=== PATIENT | female | born 1935 | race Caucasian/White ===

== ENCOUNTER 2020-09-08 13:22 | Outpatient (CLI) | payer MEDICARE, SELFPAY ==
--- NOTE | ~2020-09-08 | XR_ITS ---
XR shoulder LT min 2V DATE: 09/08/2020 13:44 INDICATION: Left shoulder pain TECHNIQUE: 5 views COMPARISON: None FINDINGS: There is calcification of the rotator cuff consistent with calcific tendinitis. There is joint space narrowing at severe spurring at the left glenohumeral joint consistent with brigitte re osteoarthritis. Diffuse osteopenia. No fracture or dislocation, periosteal reaction or bone destruction of the left shoulder. 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
== END 2020-09-08 13:23 | disposition home or self-care (01) ==
PROVIDERS: PCP Family Medicine; Visit Provider Family Medicine
DX: M25.511 Pain in right shoulder (principal); M25.512 Pain in left shoulder; M19.012 Primary osteoarthritis, left shoulder
CPT/HCPCS: 73030

== ENCOUNTER 2020-11-19 12:04 | Outpatient (CLI) | payer MEDICARE, SELFPAY ==
--- NOTE | ~2020-11-19 | XR_ITS ---
XR tibia fibula RT 2V DATE: 11/19/2020 12:28 INDICATION: Patient fell 2 weeks ago. Distal lateral wound. TECHNIQUE: AP and lateral views COMPARISON: None FINDINGS: Diffuse osteopenia. Osteoarthritic changes noted at the knee joint. No fracture, dislocation, periosteal reaction or bone destruction is evident. Arterial calcifications are noted. IMPRESSION: Osteopenia Osteoarthritis at the knee joint Reviewed, dictated and finalized at location B. LAUNCH [employer] TECHNICIAN
--- NOTE | ~2020-11-19 | XR_ITS ---
XR ankle RT 2V DATE: 11/19/2020 12:28 INDICATION: Patient fell 2 weeks ago. Lateral distal wound TECHNIQUE: 2 views COMPARISON: None FINDINGS: There is soft tissue swelling, primarily laterally. No fracture or dislocation of the ankle or disruption of the ankle mortise. Plantar calcaneal enthesopathy, Minimal distal Achilles tendon calcification. Diffuse osteopenia. IMPRESSION: Lateral soft tissue swelling; no fracture or dislocation Reviewed, dictated and finalized at location B. ER COPPER
== END 2020-11-19 12:05 | disposition home or self-care (01) ==
PROVIDERS: PCP Family Medicine; Visit Provider Nurse Practitioner Family
DX: M79.89 Other specified soft tissue disorders (principal)
CPT/HCPCS: 73590; 73600

== ENCOUNTER 2021-01-21 14:36 | Outpatient (CLI) | payer MEDICARE, SELFPAY ==
--- NOTE | ~2021-01-21 | US_ITS ---
US arterial ankle brachial ind INDICATION: Cellulitis TECHNIQUE: Segmental pressures and plethysmographic and Doppler waveforms of the brachial and lower e xtremity arteries were obtained. COMPARISON: None. FINDINGS: Right and left brachial artery pressures of 150 mm Hg and 175 mm Hg, respectively, are concordant (no rmal difference <= 30 mmHg). The right ankle-brachial index (PUJA) is 0.95 (normal >= 0.9-1.0). The right great toe-brachial index (TBI) is greater than 1 (normal >= 0.60). The left PUJA is 0.93. The left TBI is greater than 1. IMPRESSION: 1. Normal ankle-brachial indices. Reviewed, dictated and finalized at location A. R FINISHER
== END 2021-01-21 14:37 | disposition home or self-care (01) ==
LOC: CHSIMG 14:38
PROVIDERS: PCP Family Medicine; Visit Provider Family Medicine
DX: L03.90 Cellulitis, unspecified (principal); M79.89 Other specified soft tissue disorders
CPT/HCPCS: 93922

== ENCOUNTER 2022-02-09 14:50 | Outpatient (RCR) | payer MEDICARE, SELFPAY ==
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
--- NOTE | 2022-03-04 15:01 | PTOPEVAL ---
Thank you for referring Carine Mcnally to [facility].? The patient is scheduled to be seen for therapy? ____x/week for ___ weeks. Please review, sign, date and return this plan of care GONZALEZ. I agree with and certify that the following plan of care is medically necessary. Referring Physician Date Admitting Provider: Attending Provider: Cleveland Alfonso DO Referring Provider: *PT Outpatient Evaluation Start: 02/09/22 15:05 Freq: Status: Active Protocol: Document 03/04/22 14:00 [facility] (Rec: 03/04/22 15:00 [facility] [id number]) Therapy Assessment Status Assessment Status Assessment Status Discharge Outpatient Past Medical History Gastrointestinal History Hx Appendectomy Yes Musculoskeletal History Hx Orthopedic Surgery Yes Evaluation Information Problem Diagnosis OA generalized, unsteady gait Subjective Information patient reports she feels Query Text:As Reported By Patient/ alright this date. she Family reports she does have pains in the knees and the shoulders, but reports she has pain every day. Pain Assessment Timing of Pain Assessment Timing of Pain Assessment Assessment Pain Scale Pain Scale Used Numeric (1 - 10) Self Report Pain Assessment Knee(s) Reported Pain Level 5 Shoulder(s) Reported Pain Level 7 Pain Score Pain Score 5,7: Self Report Interventions Used Interventions Used By Clinicians Activity or ADL's,Education, Heat,Ice,Medication Lower Extremity Muscle Strength Testing General Lower Extremity Strength Gross Lower Extremity Strength 4/5 R hip abd and flex in sitting 4/5 L hip flex and abd in sitting 5/5 bilateral knee ext 5/5 bilateral knee flex 5/5 bilateral ankle DF Upper Extremity Muscle Strength Testing General Upper Extremity Strength Gross Upper Extremity Strength Comments 4/5 bilateral shoulder flex and ER 4+/5 bilateral elbo strength Balance Assessment Tinetti Balance Assessment Sitting Balance Steady, safe Ability to Arise Able, uses arms to help Attempts to Arise Arises on 1st attempt Immediate Standing Balance Steady with support Standing Balance Steady, wide stance Nudged Response Staggers, catches self Standing with Eyes Closed Steady Step Pattern Turning 360 Degrees Discontinuous steps Stability Turning 360 Degrees Unsteady, grabs/staggers Sitting Down Uses arms or un
== END 2022-03-04 15:37 | disposition home or self-care (01) ==
LOC: CHSPT 14:50
PROVIDERS: PCP Family Medicine; Visit Provider Family Medicine
DX: M19.90 Unspecified osteoarthritis, unspecified site (principal)
CPT/HCPCS: 97110; 97112; 97161; 97530

== ENCOUNTER 2023-05-14 01:52 | Emergency (ER) | payer MEDICARE, SELFPAY ==
[2023-05-14] VITALS (24 sets, daily range): BP systolic 120–151; BP diastolic 78–101; PULSE 80–107; RESP 17–29; TEMP 36.6; O2SAT 86–100
--- NOTE | ~2023-05-14 | XR_ITS ---
EXAMINATION: XR chest 2V DATE: 05/14/2023 03:18 INDICATION: Shortness of breath TECHNIQUE: AP and lateral views of the chest are obtained. COMPARISON: 06/07/2019 FINDINGS: There are minimal airspace opacities of the lung bases. Small pleural effusions are present . There is no pneumothorax. The cardiomediastinal silhouette is normal. There is moderate thoracic sp ondylosis. There is advanced osteoarthritis of the glenohumeral joints. IMPRESSION: 1. Airspace opacities of the lung bases, consistent with atelectasis versus pneumonia versus pulmonar y edema. 2. Small pleural effusions. Reviewed, dictated and finalized at location A. IMPRESSION: 1. Airspace opacities of the lung bases, consistent with atelectasis versus pne umonia versus pulmonary edema. 2. Small pleural effusions.
--- NOTE | 2023-05-14 02:00 | ECG_ITS ---
Measurements Intervals [place] Rate: 101 P: TX: 0 QRS: -42 QRSD: 124 T: 123 QT: 360 QTc: 468 Interpretive Statements SINUS TACHYCARDIA ATRIAL PREMATURE COMPLEXES LEFT AXIS DEVIATION RIGHT BUNDLE BRANCH BLOCK LEFT VENTRICULAR HYPERTROPHY WITH ST-T CHANGE CANNOT RULE OUT SEPTAL INFARCT, AGE INDETERMINATE BASELINE ARTIFACT- I, II, AVR, AVL, V1-V2, V4-V6 ABNORMAL ECG NO PREVIOUS ECG AVAILABLE FOR COMPARISON Electronically Signed On 05-14-2023 7:34:34 CDT by Cleve Rosa D.O.
--- NOTE | 2023-05-14 02:06 | ED.SOB ---
HPI - SOB/Dyspnea General Chief Complaint: Shortness of Breath/Dyspnea Stated Complaint: SOB Time Seen by Provider: 05/14/23 02:01 Source: patient, EMS and RN notes reviewed Mode of arrival: EMS Limitations: no limitations History of Present Illness MD elicited complaint: shortness of breath Onset (ago): day(s) (2) Timing: constant Severity: moderate Exacerbating factors: lying flat Relieving factors: nothing Associated symptoms: chest pain Treatment prior to arrival: none Related Data Home oxygen amount: none Home Medications Medication Instructions Recorded Confirmed hydrocodone 5 mg-acetaminophen 325 1 tablet PO Q8H PRN Pain (Scale 05/14/23 05/14/23 mg tablet Score 4-6) Allergies Allergy/AdvReac Type Severity Reaction Status Date / Time No Known Allergies Allergy Verified 05/14/23 06:03 Review of Systems Review of Systems: All systems reviewed & are unremarkable except as noted in HPI and below PMFSH Past Medical History Medical History Osteoarthritis Surgical History Surgical History History of appendectomy Age 17 History of hysterectomy Age 43 History of right hip replacement 2019 Family History Family History Mother Family history of arthritis Father No problems noted. Social History Social History Social History: Patient lives with her Julio and has 2 sons. One son is a liability claims adjuster while the other is a retired heavy duty truck mechanic. Her was a roof bolting coal miner, and has some health issues. She currently wishes to be a full code, and her Julio is her surrogate decision maker if she is unable. Smoking status: Never smoker Alcohol intake: never Substance use: never Lack of Transportation: No Lack of Food: Never True Current Housing: I Have Housing Concerned About Future Housing: No Difficulty Paying Gas/Electric Bills: No Difficulty Paying for Meds: No Currently Unemployed: No Education: High School Diploma/GED Difficulty w/ Childcare or Family Care: No Living arrangements: with family Additional living arrangements comments: . Lives with . 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 Gender identity (if verbalized by the patient): Female Sexual Orientation (if Verbalized by the Patient): Straight or Heterosexual Spiritual care concerns: No Agree to blood products: Yes Exam Const: General: healthy appearing, no acute distress and alert Nutritional Appearance: well nourished Orientation/consciousness: patient oriented x3 Limitations: no limitations HENMT: Head: normal to inspection Ears: external ears normal Face/Nose/Sinus: Normal external nose present Face and sinus: normal facial exam Mouth: Yes moist mucous membranes Eyes: Conjunctivae: conjunctivae normal Pupils: Equal, round and reactive pupils present EOM: EOMs intact bilaterally Neck: Neck: normal visual inspection Resp: Effort & Inspection: normal respiratory effort Auscultation: clear to auscultation bilaterally Cardio: Rate: tachycardic Rhythm: abnormal rhythm irregularly irregular GI: GI Palp: Yes Soft to palpation and No Tenderness to palpation present (GI) Auscultation: normal bowel sounds Back/Spine/Pelvis: Cervical Spine: cervical ROM normal Thoracic/Lumbar Spine: thoraco-lumbar ROM normal Skin: General skin exam: normal color Rashes: no rashes Neuro: General: patient oriented x3, moves all extremities, no focal motor deficits and CN's II-XI intact bilaterally Speech: normal speech Extrem: General: normal to inspection and no clubbing, cyanosis or edema Psych: Mental Status: mental status grossly normal Affect: normal affect Attitude:
[2023-05-14 02:27] LABS: Basophils Absolute Auto 0.05 K/mm3 (0.00-0.10); Basophils Percent Auto 0.7 % (0.0-1.0); Eosinophils Percent Auto 1.3 % (1.0-6.0); Hematocrit 39.4 % (35.0-42.0); Hemoglobin 13.1 g/dL (11.7-13.8); Immature Granulocyte Absolute 0.04 K/mm3 (0.00-0.00); Immature Granulocyte Percent A 0.5 % (0.0-0.0); Lymphocytes Absolute Auto 1.18 K/mm3 (1.10-4.50); Lymphocytes Percent Auto 15.4 % (18.0-42.0); Mean Corpuscular HGB Conc 33.2 g/dL (32.0-36.0); Mean Corpuscular Volume 99.2 fL (78.0-102.0); Monocytes Absolute Auto 0.53 K/mm3 (0.10-0.90); Monocytes Percent Auto 6.9 % (2.0-11.0); Neutrophils Absolute Auto 5.8 K/mm3 (1.7-7.2); Neutrophils Percent Auto 75.2 % (50.0-70.0); Platelet Count Result 223 K/mm3 (150-420); Red Blood Count 3.97 M/mm3 (4.20-5.40); Red Cell Distribution Width 12.2 % (11.6-14.4); White Blood Count 7.7 K/mm3 (4.8-10.8)
[2023-05-14 02:41] LABS: Partial Thromboplastin Time 26.8 SEC (23.90-30.70); Prothrombin Time 11.1 Seconds (9.50-12.10)
[2023-05-14] MEDS: METOPROLOL SUCCINATE EXT REL 25 MG TABCR PO (02:41)
[2023-05-14 02:52] LABS: Alanine Aminotransferase 37 U/L (14-59); Albumin Level 3.3 g/dL (3.4-5.0); Alkaline Phosphatase 93 U/L (46-116); Anion Gap 9 mmol/L (8-16); Aspartate Amino Transferase 48 U/L (15-37); Bilirubin,Total 1.2 mg/dL (0.00-1.00); Blood Urea Nitrogen 28 mg/dL (7-18); Carbon Dioxide 28 mmol/L (21-32); Chloride 105 mmol/L (98-108); Estimated CRCL calculation 32 ml/min; Estimated Glomerular Filt Rate > 60; Glucose 155 mg/dL (70-99); Magnesium 1.8 mg/dL (1.8-2.4); NT Pro B Type Natriuretic Pept 7027 pg/mL (0-450); Osmolality Calculated 302 mOsm/kg (285-295); Potassium 3.7 mmol/L (3.5-5.1); Sodium 142 mmol/L (136-145); Thyroid Stimulating Hormone 1.44 uIU/mL (0.36-3.74); Total Protein 6.5 g/dL (6.4-8.2)
[2023-05-14 02:54] LABS: Troponin I 415.3 ng/L (0.00-60.4)
[2023-05-14] MEDS: ASPIRIN 81 MG CHEWABLE TABLET 324 MG PO (03:05)
--- NOTE | 2023-05-14 03:07 | PC.NURSE ---
Lab results reported and orders received, pt and family informed on POC. Orders received to transfer. Pt and family wish transfer to [facility].
--- NOTE | 2023-05-14 03:50 | PC.NURSE ---
Pt resting c family at bedside. VSS, monitor showing a-fib. Pt has Spo2 at 96% on 3L NC. Awaiting call back from Dr Hernández.
--- NOTE | 2023-05-14 04:45 | PC.NURSE ---
Called report to [facility] at [place]. Pt and family then requested transport per [facility] to [place] [place]. Call paged for [facility] for transfer.
--- NOTE | 2023-05-14 05:10 | PC.NURSE ---
Report to [facility], pt ambulated steadily to cot for transfer. VSS.
== END 2023-05-14 05:15 | disposition short-term general hospital (02) ==
PROVIDERS: Emergency Provider Emergency Medicine; PCP Family Medicine
DX: I21.4 Non-ST elevation (NSTEMI) myocardial infarction (principal); I48.20 Chronic atrial fibrillation, unspecified; I11.0 Hypertensive heart disease with heart failure; I50.9 Heart failure, unspecified; Z79.891 Long term (current) use of opiate analgesic
CPT/HCPCS: 36415; 71046; 80053; 83735; 83880; 84443; 84484; 85025; 85610; 85730; 93005; 99291; A9270

== ENCOUNTER 2023-05-14 05:47 | Inpatient (IN) | payer MEDICARE, SELFPAY ==
[2023-05-14] VITALS (19 sets, daily range): BP systolic 89–176; BP diastolic 55–112; PULSE 57–87; RESP 12–20; TEMP 36.1–37.4; O2SAT 92–100; BMI 25.5
--- NOTE | 2023-05-14 | ECHO_ITS ---
Patient Info Name: Carine Mcnally Age: 88 years : 1935 Gender: Female Ht: 61 in Wt: 136 lbs BSA: 1.64 m2 HR: 84 bpm Technical Quality: Fair Exam Date: 05/14/2023 9:48 AM Exam Location: [facility] Pulmonary Exam Room: [facility] Patient Status: Inpatient Admit Date: 05/14/2023 Staff Ordering Physician: Vera Hernández MD Heating Element Repairer: Ingrid Queen RDCS Attending Provider: Vera Hernández MD Referring Physician: Edgar PEÑA; Exam Type: CA echo doppler color flow Study Info Indications - chf sob dyspnea Complete two-dimensional, color flow and Doppler transthoracic echocardiogram is performed. Summary 1. Complete two-dimensional, color flow and Doppler transthoracic echocardiogram is performed. 2. Left ventricular chamber dimension is mildly enlarged. 3. Left ventricular systolic function is segmentally moderately reduced, estimated at 35-40%. 4. Basal to apical inferior and lateral couch are hypokinetic. Mid to apical anteroseptal and septal and apical couch are hypokinetic. 5. There is mild concentric increased left ventricular wall thickness. 6. The left ventricular diastolic function is grade I diastolic dysfunction. 7. E/e' 16 is elevated. 8. Global longitudinal strain is abnormal at -8.9%. 9. Left atrial chamber dimension is moderately enlarged. 10. There is moderate aortic valve sclerosis. 11. There is mild aortic valve stenosis with a peak velocity of 216 cm/s, mean gradient of 11 mmHg, and aortic valve area of 1.6 cm2. 12. There is trace aortic valve regurgitation. 13. The mitral valve has mildly thickened leaflets and mildly calcified annulus. 14. There is moderate mitral valve regurgitation. 15. There is mild to moderate tricuspid valve regurgitation. 16. Mild pulmonary hypertension, estimated pulmonary arterial systolic pressure is 42 mmHg. 17. There is mild pulmonic regurgitation. Left Ventricle E/e' 16 is elevated. Global longitudinal strain is abnormal at -8.9%. Left ventricular systolic function is segmentally moderately reduced, estimated at 35-40%. Basal to apical inferior and lateral couch are hypokinetic. Mid to apical anteroseptal and septal and apical couch are hypokinetic. Left ventricular chamber dimension is mildly enlarged. There is mild concentric increased left ventricular wall thickness. The left ventricular diastolic function is grade I diastolic dysfunction. Right Ventricle Right ventricular systolic function is normal and with normal TAPSE 3.0 cm. Right ventricular chamber dimension is normal. Left Atria Left atrial chamber dimension is moderately enlarged. Right Atria Right atrial chamber dimension is normal. Aortic Valve The aortic valve is trileaflet. There is moderate aortic valve sclerosis. There is mild aortic valve stenosis with a peak velocity of 216 cm/s, mean gradient of 11 mmHg, and aortic valve area of 1.6 cm2. There is trace aortic valve regurgitation. Pulmonic Valve There is mild pulmonic regurgitation. Mitral Valve The mitral valve has mildly thickened leaflets and mildly calcified annulus. There is no mitral valve stenosis. There is moderate mitral valve regurgitation. Tricuspid Valve There is mild to moderate tricuspid valve regurgitation. Mild pulmonary hypertension, estimated pulmonary arterial systolic pressure is 42 mmHg. Pericardium/Pleural There is no pericardial effusion. Inferior Vena Cava Normal inferior vena cava with >50% collapse upon inspiration consistent with normal right atrial pressure, 5 mmHg. Aorta The aortic root size at the sinus of Valsalva is normal. Left
--- NOTE | ~2023-05-14 | CT_ITS ---
EXAMINATION: CT brain wo con DATE: 05/14/2023 16:40 INDICATION: Loss of consciousness TECHNIQUE: Computed tomography (CT) of the head was performed without intravenous contrast. Sagittal and coronal reconstructions were performed. The mA was adjusted according to patient size. Iterative reconstruction technique was employed. The dose-length product was 529.67 mGy-cm. COMPARISON: head CT dated 09/24/19 FINDINGS: No acute intracranial hemorrhage, acute infarction or abnormal extra axial fluid collection. There is mild to moderate scattered white matter hypoattenuation consistent with chronic small vessel ischemi c disease. Symmetric prominence of the sulci consistent with mild age-appropriate diffuse cerebral vo lume loss. Ventricles are normal and symmetric. No mass/mass effect. Changes of bilateral intraocular lens replacement. The orbits, paranasal sinuses and mastoid air cells are normal. Intracranial calci fied cerebral atherosclerosis is noted. IMPRESSION: 1. No acute intracranial process. 2. No significant change in age-related changes including mild diffuse volume loss and mild moderate scattered white matter hypoattenuation consistent with chronic small vessel ischemic disease. Reviewed, dictated and finalized at location A. IMPRESSION: 1. No acute intracranial process. 2. No significant change in age-related changes including mild diffuse volume l oss and mild moderate scattered white matter hypoattenuation consistent with ch ronic small vessel ischemic disease.
--- NOTE | 2023-05-14 06:58 | PC.NURSE ---
This patient, Carine Mcnally, was admitted to IMU Room 206-02. Patient/family oriented to hospital policies and general routines including ID bracelet, bed and alarms, visiting hours, pain management, procedures, bathroom and other care routines, personal items, smoking policy, room service/diet, and visiting hours. Information on how to activate the Rapid Response Team has been discussed. Patient/Family are encouraged to report perceived risks to care and to ask questions if they do not understand what they are told or what they should do.
[2023-05-14 07:10] LABS: Basophils Absolute Auto 0.1 K/mm3 (0.0-0.1); Basophils Percent Auto 0.7 % (0.2-1.2); Eosinophils Percent Auto 0.5 % (0-4.4); Hemoglobin 13.2 g/dL (12.0-15.0); Immature Granulocyte Absolute 0.02 K/mm3 (0.00-0.031); Immature Granulocyte Percent A 0.3 % (0-0.5); Lymphocytes Absolute Auto 1.16 K/mm3 (0.9-3.2); Lymphocytes Percent Auto 15.5 % (18.3-44.2); Mean Corpuscular Hemoglobin 32.5 pg (26-34); Mean Corpuscular Volume 98.5 fl (80-100); Monocytes Absolute Auto 0.7 K/mm3 (0.1-0.6); Monocytes Percent Auto 8.8 % (2.6-8.5); Neutrophils Absolute Auto 5.5 K/mm3 (1.3-6.7); Neutrophils Percent Auto 74.2 % (45.5-73.1); Platelet Count Result 226 k/mm3 (150-375); Red Blood Count 4.06 M/mm3 (4.2-5.4); Red Cell Distribution Width 12.6 % (11.5-14.5); White Blood Count 7.5 K/mm3 (4.5-10.0)
--- NOTE | 2023-05-14 07:14 | PM.IMHP ---
H&P: HPI History of Present Illness Date/Time: 05/14/23 07:00 Chief Complaint: Shortness of breath Narrative: Carine Mcnally is an 88 year old female with no significant past medical history who presented to [place] ED with complaints of Shortness of breath. Patient is sort of a bad historian. After she went and stated that she had been going to the doctor about her knee due to pain. Patient stated that her knees were so bad that she was not even able to walk which was about 2 weeks ago. Then she went on to say that she was eating breakfast about 2 days ago and she felt something was wrong in her stomach. She took some [place] did calm down however did go way. Then she stated it got real bad this morning and she was just very short of breath. Patient stated that she was in bed for 2 hours lower than normal and when she did get out of bed she noted that it was very hard. She went to the bathroom and when she got to the bathroom she noticed that she was having labored breathing and was unable to really breathe. She stated that she went to the kitchen where she noted that the shortness of breath was even worse. She then alerted her and told him that she was going to as she could not breathe. She stated that her breathing was so bad that she was hyperventilating. Her advised her to lay down when she did lay down she stated that she felt her heart beating in her chest really quickly and that she was lying on her side and she felt the palpitations through her left arm. She also stated that she was having some lightheadedness and dizziness. The shortness of breath was still present. She did call an ambulance and they brought her to the ED. Patient stated that she has been unable to lay flat as she becomes very short of breath. She denies any current chest pain, nausea, vomiting, diarrhea, constipation, urinary dysfunction including frequency, urgency, pain or burning. She also denies any abdominal pain. She also stated that her appetite is lacking could be better however she denies any current weight loss or missing any meals. EKG did show Sinus tachycardia with PACs with a rate of 101 at [place]. Troponin was also elevated at 415.3, BNP 7027. Patient was given metoprolol, and aspirin in the ED. Cardiology has been consulted. HR is better in the 80s. She is requiring oxygen, and does appear to be short of breath. She does have a hard time completing sentences and gets winded at rest. She is being admitted to the hospitalist service as an inpatient and will require greater than 2 midnights for evaluation, workup, and recovery Review of Systems Review of Systems: 12 systems reviewed and are negative unless otherwise stated in the HPI All systems reviewed & are unremarkable except as noted in HPI and below PMFSH Past Medical History Medical History Osteoarthritis Surgical History Surgical History History of appendectomy Age 17 History of hysterectomy Age 43 History of right hip replacement 2019 Family History Family History Mother Family history of arthritis Father No problems noted. Social History Social History Social History: Patient lives with her Julio and has 2 sons. One son is a manager behavior while the other is a retired truck driver supervisor. Her was a clothing examiner, and has some health issues. She currently wishes to be a full code, and her Julio is her surrogate decision maker if she is unable. Smoking status: Never smoker Alcohol intake: never Substance use: never Lack of Transportation: No Lack of Food: Never True Current Housing: I Have Housing Concerned About Future Housing: No Difficulty Paying Gas/Electric B
[2023-05-14 07:22] LABS: Cholesterol 185 mg/dL (0-200); HDL Direct 47 mg/dL; Triglycerides 105 mg/dL (<150)
[2023-05-14 07:24] LABS: Prothrombin Time 13.7 Seconds (11.1-14.7)
[2023-05-14 07:25] LABS: Partial Thromboplastin Time 28.2 SECONDS (22.3-36.8)
[2023-05-14 07:32] LABS: LDL Cholesterol Direct 107 mg/dL
[2023-05-14] MEDS: HEPARIN SODIUM 5,000 UNITS/ML VIAL 5000 UNITS IV PUSH (07:46)
[2023-05-14] MEDS: HEPARIN SOD/D5W 100 UNITS/ML 25,000 UNITS/250 ML BAG 10 UNITS IV CONT (07:46)
[2023-05-14 07:52] LABS: Hemoglobin A1C 6.2 % (<5.7)
[2023-05-14 07:53] LABS: Alanine Aminotransferase 37 U/L (6-35); Albumin Level 3.7 g/dL (3.5-5.1); Alkaline Phosphatase 88 U/L (38-126); Anion Gap 6 mmol/L (8-16); Aspartate Amino Transferase 62 U/L (14-36); Bilirubin,Total 1.5 mg/dL (0.2-1.3); Blood Urea Nitrogen 27 mg/dL (7-17); Calcium 8.9 mg/dL (8.4-10.2); Carbon Dioxide 30 mmol/L (22-30); Chloride 103 mmol/L (98-107); Estimated CRCL calculation 37 ml/min; Estimated Glomerular Filt Rate > 60; Glucose 110 mg/dL (65-110); Potassium 4.2 mmol/L (3.4-5.0); Sodium 139 mmol/L (137-145)
--- NOTE | 2023-05-14 08:08 | PM.CNCAR ---
Assessment and Plan Assessment and plan (1) Elevated troponin: Code(s): R77.8 - Other specified abnormalities of plasma proteins Status: Acute Assessment and Plan: Significantly elevated at 3.19. Probably NSTEMI. Trend troponin to peak. Start aspirin 81 mg daily and heparin drip, Atorvastatin 80 mg daily, Metoprolol Tartate 25 mg BID. Obtain echo. Anticipate [facility] on Tuesday unless hemodynamically or clinically unstable. (2) Non-ST elevation TX (NSTEMI): Code(s): I21.4 - Non-ST elevation (NSTEMI) myocardial infarction Status: Acute (3) Congestive heart failure: Qualifiers: Heart failure chronicity: acute Heart failure type: unspecified Qualified Code(s): I50.9 - Heart failure, unspecified Code(s): I50.9 - Heart failure, unspecified Status: Acute Assessment and Plan: Check CXR. On Lasix 40 mg IV BID. History of Present Illness History of Present Illness Consult date/time: 05/14/23 08:08 Reason For Visit: CHF, A fib, elevated troponin Narrative: 88 yr old woman presents to [place] ER with sob and transferred to [facility]. She has no cardiac history. Reports early this morning as she gets up early she felt sob and her heart was racing. She feels better now no longer sob. Normally she can walk 1 block and limited more by knee pain. Denies chest pain, orthopnea, PND, edema, dizziness. Review of Systems Review of Systems: All systems reviewed & are unremarkable except as noted in HPI and below Cardiovascular: Cardiovascular: Reports as per HPI, Denies chest pain, Denies irregular heart rhythm, Denies leg edema and Denies lightheadedness Respiratory: Respiratory: Reports as per HPI and Reports dyspnea Gastrointestinal: Gastrointestinal: Reports as per HPI and Denies abdominal pain Genitourinary: Genitourinary: Reports as per HPI and Denies dysuria Musculoskeletal: Musculoskeletal: Reports as per HPI and Reports arthralgias Neurologic: Reports as per HPI, Denies dizziness and Denies syncope [facility] Past Medical History Medical History Osteoarthritis Surgical History Surgical History History of appendectomy Age 17 History of hysterectomy Age 43 History of right hip replacement 2018 Family History Family History Mother Family history of arthritis Father No problems noted. Social History Social History Social History: Patient lives with her Julio and has 2 sons. One son is a welcome center attendant while the other is a retired concrete truck driver. Her was a forms examiner, and has some health issues. She currently wishes to be a full code, and her Julio is her surrogate decision maker if she is unable. Smoking status: Never smoker Alcohol intake: never Substance use: never Lack of Transportation: No Lack of Food: Never True Current Housing: I Have Housing Concerned About Future Housing: No Difficulty Paying Gas/Electric Bills: No Difficulty Paying for Meds: No Currently Unemployed: No Education: High School Diploma/GED Difficulty w/ Childcare or Family Care: No Living arrangements: with family Additional living arrangements comments: . Lives with . 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
[2023-05-14] MEDS: lisinopriL 2.5 MG TABLET PO (10:00)
[2023-05-14] MEDS: ATORVASTATIN 40 MG TABLET 80 MG PO (10:01)
[2023-05-14] MEDS: FUROSEMIDE INJ 40 MG/4 ML VIAL IV PUSH (10:02)
[2023-05-14] MEDS: METOPROLOL TARTRATE 25 MG TABLET PO ×2 (10:02→20:59)
[2023-05-14] MEDS: ASPIRIN 81 MG ENTERIC TABLET PO (10:04)
[2023-05-14 12:12] LABS: Glucose Point of Care 155 mg/dl (65-105)
[2023-05-14 16:15] LABS: Partial Thromboplastin Time 60.4 SECONDS (22.3-36.8)
[2023-05-14 16:37] LABS: Alveolar/Arterial O2 Gradient 94.1 mmHg; Base Excess ABG 1.9 mEq/l (+/-2.0); Fractional Inspired Oxygen 28 %; HCO3 ABG 23.8 mEq/l (22.0-26.0); Oxygen Content ABG 19.4 %vol (16.0-22.0); Oxygen Saturation ABG 95.8 % (95.0-100.0); Oxyhemoglobin 93.9 % THb (90.0-100.0); PO2 ABG 70.1 mmHg (80.0-100.0); Total Hemoglobin 14.7 g/dL (12.0-18.0)
[2023-05-14 16:40] LABS: Device NASAL CANNULA; Modified Allen's Test Pass; Site Drawn RIGHT RADIAL; pH ABG 7.518 (7.350-7.450)
--- NOTE | 2023-05-14 16:40 | PM.EVENT ---
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 patient was not responding. family notified nursing staff. pateint was put to bed and started to become responsive. patient bp 90 systolic at that time. she is more responsive and back to her usual self. vitals with bp still lowish, heart rate normal. she reports no chest pain or shortness of breath. patient moving all her extremities. likely the event relative to hypotension. shaking episode likely due to hypotension and cerebral hypoperfusion not seizures. will get ct head to rule out any intracranial pathology. ng 500 cc bolus. she receieved metoprolol, iv lasix and lisinopril earlier today. will hold on further diuresis. telemetry with afib rate controlled, no other significant arrhythmia noted during the event. check ekg and abg. recheck labs. discussed with the family.
--- NOTE | 2023-05-14 16:45 | ECG_ITS ---
Measurements Intervals [place] Rate: 77 P: 82 MA: 189 QRS: -37 QRSD: 114 T: 133 QT: 436 QTc: 494 Interpretive Statements SINUS RHYTHM ATRIAL PREMATURE COMPLEX LEFT AXIS DEVIATION LEFT VENTRICULAR HYPERTROPHY AND ST-T CHANGE MINIMAL Q WAVES- HIGH LATERAL LEADS ST-T WAVE ABNORMALITY IN ANTEROLATERAL LEADS- CONSIDER ISCHEMIA BASELINE WANDER- V6 ABNORMAL ECG COMPARED TO ECG 05/14/2023 02:03:27 SINUS RHYTHM NOW PRESENT ST-T WAVE ABNORMALITY NOW PRESENT Electronically Signed On 05-15-2023 21:22:34 CDT by Cleve Rosa D.O.
[2023-05-14 17:05] LABS: Glucose Point of Care 159 mg/dl (65-105)
--- NOTE | 2023-05-14 17:21 | PC.NURSE ---
Pt found unresponsive in chair around 1608. Rapid Response called. pt moved to bed. Primary RN, laborer shaft sinking and RT at bedside during this time.
[2023-05-14] MEDS: SODIUM CHLORIDE 0.9% IV 500 ML IV CONT (17:32)
[2023-05-14] MEDS: HEPARIN SODIUM 5,000 UNITS/ML VIAL 2000 UNITS IV PUSH (18:36)
[2023-05-14 20:39] LABS: Glucose Point of Care 138 mg/dl (65-105)
[2023-05-15] VITALS (19 sets, daily range): BP systolic 110–138; BP diastolic 60–74; PULSE 58–80; RESP 16–20; TEMP 35.7–36.6; O2SAT 95–99
[2023-05-15 02:20] LABS: Partial Thromboplastin Time 84.1 SECONDS (22.3-36.8)
[2023-05-15 07:33] LABS: Basophils Percent Auto 0.8 % (0.2-1.2); Eosinophils Absolute Auto 0.1 K/mm3 (0-0.3); Eosinophils Percent Auto 2.1 % (0-4.4); Hematocrit 37.8 % (37.0-47.0); Hemoglobin 12.5 g/dL (12.0-15.0); Immature Granulocyte Absolute 0.02 K/mm3 (0.00-0.031); Immature Granulocyte Percent A 0.4 % (0-0.5); Lymphocytes Absolute Auto 1.28 K/mm3 (0.9-3.2); Mean Corpuscular HGB Conc 33.1 g/dl (32-36); Mean Corpuscular Hemoglobin 32.6 pg (26-34); Mean Corpuscular Volume 98.4 fl (80-100); Mean Platelet Volume 10.2 fl (7.4-10.4); Monocytes Absolute Auto 0.5 K/mm3 (0.1-0.6); Monocytes Percent Auto 9.9 % (2.6-8.5); Neutrophils Absolute Auto 3.2 K/mm3 (1.3-6.7); Neutrophils Percent Auto 61.8 % (45.5-73.1); Platelet Count Result 198 k/mm3 (150-375); Red Blood Count 3.84 M/mm3 (4.2-5.4); Red Cell Distribution Width 12.8 % (11.5-14.5); White Blood Count 5.1 K/mm3 (4.5-10.0)
[2023-05-15 07:44] LABS: Anion Gap 3 mmol/L (8-16); Blood Urea Nitrogen 32 mg/dL (7-17); Calcium 8.5 mg/dL (8.4-10.2); Carbon Dioxide 32 mmol/L (22-30); Chloride 102 mmol/L (98-107); Estimated CRCL calculation 37 ml/min; Estimated Glomerular Filt Rate > 60; Glucose 107 mg/dL (65-110); Potassium 3.7 mmol/L (3.4-5.0); Sodium 137 mmol/L (137-145)
[2023-05-15 07:48] LABS: Partial Thromboplastin Time 89.4 SECONDS (22.3-36.8)
[2023-05-15 08:00] LABS: Glucose Point of Care 116 mg/dl (65-105)
--- NOTE | 2023-05-15 08:18 | ECG_ITS ---
Measurements Intervals [place] Rate: 59 P: 30 CO: 183 QRS: -38 QRSD: 123 T: 136 QT: 488 QTc: 487 Interpretive Statements SINUS BRADYCARDIA LEFT AXIS DEVIATION POSSIBLE LEFT ATRIAL ENLARGEMENT LEFT VENTRICULAR HYPERTROPHY AND ST-T CHANGE BORDERLINE ST-T WAVE ABNORMALITY- ANTEROLATERAL LEADS BORDERLINE ECG COMPARED TO ECG 05/14/2023 02:03:27 SINUS BRADYCARDIA NOW PRESENT Electronically Signed On 05-15-2023 13:17:07 CDT by Cleve Rosa D.O.
--- NOTE | 2023-05-15 08:28 | PM.PNCARD ---
Progress Note: A&P Assessment and Plan (1) Elevated troponin: Code(s): R77.8 - Other specified abnormalities of plasma proteins Status: Acute Assessment and Plan: Significantly elevated peaked at 8.3. Probably NSTEMI. (2) Non-ST elevation [place] (NSTEMI): Code(s): I21.4 - Non-ST elevation (NSTEMI) myocardial infarction Status: Inactive Assessment and Plan: 05/14/23 Echo: EF 35-40%, mild LVE, mild LVH, basal to apical inferior and lateral couch are hypokinetic, mid to apical anteroseptal and septal and apex are hypokinetic, grade I diastolic dysfunction (E/e' 16), mod LAE, mild (HERIBERTO 1.6 cm2), trace AI, mod MR, mild-mod TR, mild PI, RVSP 42 mmHg. On aspirin 81 mg daily and heparin drip, Atorvastatin 80 mg daily, Metoprolol Tartate 25 mg BID, Lisinopril 2.5 mg daily. Anticipate [facility] on Tuesday unless hemodynamically or clinically unstable. (3) Congestive heart failure: Qualifiers: Heart failure chronicity: acute Heart failure type: unspecified Qualified Code(s): I50.9 - Heart failure, unspecified Code(s): I50.9 - Heart failure, unspecified Status: Inactive Assessment and Plan: Euvolemic now. Acute systolic and diastolic heart failure. Had LOC yesterday due to hypotension probably from volume depletion. Stopped Lasix IV and given some IVF. Start Jardiance 10 mg daily. Subjective Date/time seen: 05/15/23 08:28 Interval history: Denies chest pain or sob. Exam Const: General: cooperative, healthy appearing and comfortable Orientation/consciousness: oriented to person, oriented to place and oriented to time Resp: Auscultation: clear to auscultation bilaterally, no crackles, no rales, no rhonchi and no wheezes Cardio: Rate: regular rate Rhythm: regular rhythm Heart sounds: Murmur heart sound present (II/ systolic murmur RICS) Peripheral pulses: dorsalis pedis present Other: significant bilateral varicose veins of legs Neuro: General: oriented to person, oriented to place and oriented to time Extrem: Right lower extremity: no edema Left lower extremity: no edema Objective Data Vital Signs Vital Signs: Vital Signs - 24 hr 05/14/23 10:02 05/14/23 11:37 05/14/23 12:00 Temperature 99.4 F Pulse Rate 74 79 79 Respiratory Rate 18 18 Blood Pressure 121/82 Pulse Oximetry 92 92 Oxygen Delivery Nasal Cannula Oxygen Flow Rate 2 05/14/23 12:32 05/14/23 16:13 05/14/23 16:25 Temperature 98.4 F Pulse Rate 87 60 71 Respiratory Rate 12 20 Blood Pressure 97/64 L 130/66 Pulse Oximetry 98 98 Oxygen Delivery Nasal Cannula Oxygen Flow Rate 1 05/14/23 16:15 05/14/23 16:00 05/14/23 16:00 Temperature Pulse Rate 57 L 57 L Respiratory Rate 20 Blood Pressure 89/59 L Pulse Oximetry 98 Oxygen Delivery Nasal Cannula Oxygen Flow Rate 2 05/14/23 17:00 05/14/23 20:00 05/14/23 20:58 Temperature 98.0 F Pulse Rate 81 Respiratory Rate 16 Blood Pressure 89/55 L 176/112 H 118/60 Pulse Oximetry 98 Oxygen Delivery Oxygen Flow Rate 05/14/23 20:59 05/14/23 20:00 05/14/23 23:30 Temperature 97.6 F Pulse Rate 63 67 Respiratory Rate 18 Blood Pressure 112/56 L Pulse Oximetry 98 96 Oxygen Delivery Nasal Cannula Oxygen Flow Rate 2 05/14/23 23:59 05/14/23 20:00 05/14/23 22:00 Temperature Pulse Rate 71 60 Respiratory Rate Blood Pressure Pulse Oximetry Oxygen Delivery Room Air Oxygen Flow Rate 05/15/23 00:00 05/15/23 01:49 05/15/23 04:00 Temperature Pulse Rate 59 L 63 61 Respiratory Rate Blood Pressure Pulse Oximetry Oxygen Delivery Oxygen Flow Rate 05/15/23 04:00 05/15/23 05:30 05/15/23 06:00 Temperature 96.6 F L Pulse Rate 63 64 Respiratory Rate 18 Blood Pressure 110/68 Pulse Oximetry 95 Oxygen Delivery Room Air Oxygen Flow Rate 05/15/23 08:07 Temperature 96.3 F L Pulse Rate 62 Respiratory Rate 18 Blood Pressur
[2023-05-15] MEDS: lisinopriL 2.5 MG TABLET PO (08:59)
[2023-05-15] MEDS: METOPROLOL TARTRATE 25 MG TABLET PO ×2 (08:59→20:10)
[2023-05-15] MEDS: ATORVASTATIN 40 MG TABLET 80 MG PO (08:59)
[2023-05-15] MEDS: ASPIRIN 81 MG ENTERIC TABLET PO (09:00)
[2023-05-15] MEDS: HEPARIN SOD/D5W 100 UNITS/ML 25,000 UNITS/250 ML BAG 11 UNITS IV CONT (09:46)
[2023-05-15] MEDS: EMPAGLIFLOZIN 10 MG TABLET PO (09:47)
[2023-05-15 11:48] LABS: Glucose Point of Care 90 mg/dl (65-105)
--- NOTE | 2023-05-15 12:50 | P.PNIM_ITS ---
Progress Note: A&P Assessment and Plan (1) Non-ST elevation AL (NSTEMI): Code(s): I21.4 - Non-ST elevation (NSTEMI) myocardial infarction Status: Inactive Assessment and Plan: * Presented to the ED with shortness of breath, and noted to have palpitations * Troponins elevated at 415.3, 3.190 * BNP elevated 7027 * Echo reviewed * EKG abnormal * Chest xray shows PNA va Pulmonary edema * Continue to trend * Repeat EKG ordered * Heparin drip * Cardiology consulted * Supplemental oxygen as indicated * seems to most likely be contributing to her shortness of breath * cath in am (2) Congestive heart failure: Qualifiers: Heart failure chronicity: acute Heart failure type: unspecified Qualified Code(s): I50.9 - Heart failure, unspecified Code(s): I50.9 - Heart failure, unspecified Status: Inactive Assessment and Plan: * Most likely a combination of systolic and diastolic heart failure in exacerbation * BNP elevated at 7027 * Trops elevated, however appear flat at this time 415.3/3.190 * Repeat Echo ordered * Daily weights * Strict I&Os * Trend urine output * continue metoprolol that was initiated in the ED * Start aspirin and statin * Lasix 40mg IV BID for now * Cardiology consulted * planned cath in am. (3) Hyperlipidemia: Qualifiers: Hyperlipidemia type: mixed hyperlipidemia Qualified Code(s): E78.2 - Mixed hyperlipidemia Code(s): E78.5 - Hyperlipidemia, unspecified Status: Acute Assessment and Plan: * Lipid panel triglycerides 105, cholesterol 185, LDL 107, HDL 47 * Start atorvastatin 40mg PO Daily (4) Elevated troponin: Code(s): R77.8 - Other specified abnormalities of plasma proteins Status: Acute Assessment and Plan: * Trop elevated at 415.3, 3.190 * Could be related to CHF * Cardiology consulted * Continue to trend * EKG abnormal * Heparin gtt (5) Hypertension: Qualifiers: Hypertension type: primary hypertension Qualified Code(s): I10 - Essential (primary) hypertension Code(s): I10 - Essential (primary) hypertension Status: Acute Assessment and Plan: * BP is 151/78 * Metoprolol started * Start lisinopril 2.5mg PO daily * Trend BP * Adjust therapy as indicated * hold lasix due to hpyotensive episode 05/14/2023 (6) New onset type 2 diabetes mellitus: Code(s): E11.9 - Type 2 diabetes mellitus without complications Status: Acute Assessment and Plan: * Glucose 155 in the ED * Currently 110 * A1c 6.2 * Start with diet control * stable at this time * accu cheks * hypoglycemia protocol * trend labs Subjective Date/time seen: 05/15/23 12:50 Interval history: feels better, no overnight events, bp stable. no chest pain or sob Review of Systems Review of Systems: All systems reviewed & are unremarkable except as noted in HPI and below Exam Narrative: General: well-nourished, ill-appearing 88-year-old female, not in acute dsitress Neuro: awake, alert and oriented x4, speech clear, no focal neuro deficits noted HEENMT: normocephalic, atraumatic, EOMI, sclerae anicteric, moist oral mucosa Respiratory: Clear to auscultation bilaterally without barrel scraper
--- NOTE | 2023-05-15 12:50 | PM.IMPN ---
Progress Note: A&P Assessment and Plan (1) Non-ST elevation [place] (NSTEMI): Code(s): I21.4 - Non-ST elevation (NSTEMI) myocardial infarction Status: Inactive Assessment and Plan: Presented to the ED with shortness of breath, and noted to have palpitations Troponins elevated at 415.3, 3.190 BNP elevated 7027 Echo reviewed EKG abnormal Chest xray shows PNA va Pulmonary edema Continue to trend Repeat EKG ordered Heparin drip Cardiology consulted Supplemental oxygen as indicated seems to most likely be contributing to her shortness of breath cath in am (2) Congestive heart failure: Qualifiers: Heart failure chronicity: acute Heart failure type: unspecified Qualified Code(s): I50.9 - Heart failure, unspecified Code(s): I50.9 - Heart failure, unspecified Status: Inactive Assessment and Plan: Most likely a combination of systolic and diastolic heart failure in exacerbation BNP elevated at 7027 Trops elevated, however appear flat at this time 415.3/3.190 Repeat Echo ordered Daily weights Strict I&Os Trend urine output continue metoprolol that was initiated in the ED Start aspirin and statin Lasix 40mg IV BID for now Cardiology consulted planned cath in am. (3) Hyperlipidemia: Qualifiers: Hyperlipidemia type: mixed hyperlipidemia Qualified Code(s): E78.2 - Mixed hyperlipidemia Code(s): E78.5 - Hyperlipidemia, unspecified Status: Acute Assessment and Plan: Lipid panel triglycerides 105, cholesterol 185, LDL 107, HDL 47 Start atorvastatin 40mg PO Daily (4) Elevated troponin: Code(s): R77.8 - Other specified abnormalities of plasma proteins Status: Acute Assessment and Plan: Trop elevated at 415.3, 3.190 Could be related to CHF Cardiology consulted Continue to trend EKG abnormal Heparin gtt (5) Hypertension: Qualifiers: Hypertension type: primary hypertension Qualified Code(s): I10 - Essential (primary) hypertension Code(s): I10 - Essential (primary) hypertension Status: Acute Assessment and Plan: BP is 151/78 Metoprolol started Start lisinopril 2.5mg PO daily Trend BP Adjust therapy as indicated hold lasix due to hpyotensive episode 05/14/2023 (6) New onset type 2 diabetes mellitus: Code(s): E11.9 - Type 2 diabetes mellitus without complications Status: Acute Assessment and Plan: Glucose 155 in the ED Currently 110 A1c 6.2 Start with diet control stable at this time accu cheks hypoglycemia protocol trend labs Subjective Date/time seen: 05/15/23 12:50 Interval history: feels better, no overnight events, bp stable. no chest pain or sob Review of Systems Review of Systems: All systems reviewed & are unremarkable except as noted in HPI and below Exam Narrative: General: well-nourished, ill-appearing 88-year-old female, not in acute dsitress Neuro: awake, alert and oriented x4, speech clear, no focal neuro deficits noted HEENMT: normocephalic, atraumatic, EOMI, sclerae anicteric, moist oral mucosa Respiratory: Clear to auscultation bilaterally without crackles, rhonchi or wheezes, mildly labored breathing, unable to complete sentences Cardio: regular rate, irregular rhythm with S1-S2 Abdomen: nondistended, normoactive bowel sounds, soft, nontender to palpation Extremities: no edema, erythema, or tenderness to palpation, DP pulses 2+ bilaterally Skin: no rashes or lesions, warm and dry Psych: appropriate mood and affect, judgment and insight intact Objective Data Vital Signs Vital Signs: Vital Signs - 24 hr 05/14/23 16:13 05/14/23 16:25 05/14/23 16:15 Temperature 98.4 F Pulse Rate 60 71 Respiratory Rate 12 20 Blood Pressure 97/64 L 130/66 89/59 L Pulse Oximetry 98 98 Oxygen Delivery Nasal [place]
[2023-05-15 16:18] LABS: Glucose Point of Care 88 mg/dl (65-105)
[2023-05-15 20:17] LABS: Glucose Point of Care 117 mg/dl (65-105)
[2023-05-16] VITALS (24 sets, daily range): BP systolic 115–174; BP diastolic 41–88; PULSE 62–87; RESP 14–24; TEMP 36.4–38.1; O2SAT 93–100
[2023-05-16 05:00] LABS: Basophils Percent Auto 0.6 % (0.2-1.2); Eosinophils Absolute Auto 0.1 K/mm3 (0-0.3); Hematocrit 34.6 % (37.0-47.0); Hemoglobin 11.6 g/dL (12.0-15.0); Immature Granulocyte Absolute 0.02 K/mm3 (0.00-0.031); Immature Granulocyte Percent A 0.4 % (0-0.5); Lymphocytes Absolute Auto 1.26 K/mm3 (0.9-3.2); Lymphocytes Percent Auto 25.7 % (18.3-44.2); Mean Corpuscular HGB Conc 33.5 g/dl (32-36); Mean Corpuscular Hemoglobin 32.7 pg (26-34); Mean Corpuscular Volume 97.5 fl (80-100); Mean Platelet Volume 10.2 fl (7.4-10.4); Monocytes Absolute Auto 0.6 K/mm3 (0.1-0.6); Monocytes Percent Auto 11.6 % (2.6-8.5); Neutrophils Absolute Auto 2.9 K/mm3 (1.3-6.7); Neutrophils Percent Auto 59.7 % (45.5-73.1); Platelet Count Result 192 k/mm3 (150-375); Red Blood Count 3.55 M/mm3 (4.2-5.4); Red Cell Distribution Width 12.7 % (11.5-14.5); White Blood Count 4.9 K/mm3 (4.5-10.0)
[2023-05-16 05:12] LABS: Partial Thromboplastin Time 90.9 SECONDS (22.3-36.8)
[2023-05-16 05:18] LABS: Alanine Aminotransferase 23 U/L (6-35); Albumin Level 3.2 g/dL (3.5-5.1); Alkaline Phosphatase 75 U/L (38-126); Anion Gap 3 mmol/L (8-16); Aspartate Amino Transferase 35 U/L (14-36); Bilirubin,Total 1.5 mg/dL (0.2-1.3); Blood Urea Nitrogen 35 mg/dL (7-17); Calcium 8.2 mg/dL (8.4-10.2); Carbon Dioxide 30 mmol/L (22-30); Chloride 102 mmol/L (98-107); Estimated CRCL calculation 33 ml/min; Estimated Glomerular Filt Rate > 60; Glucose 114 mg/dL (65-110); Magnesium 2.1 mg/dL (1.6-2.3); Potassium 3.5 mmol/L (3.4-5.0); Sodium 135 mmol/L (137-145)
--- NOTE | 2023-05-16 07:53 | PM.PNCARD ---
Progress Note: A&P Assessment and Plan (1) Elevated troponin: Code(s): R77.8 - Other specified abnormalities of plasma proteins Status: Acute Assessment and Plan: Significantly elevated peaked at 8.3. Probably NSTEMI. (2) Non-ST elevation [place] (NSTEMI): Code(s): I21.4 - Non-ST elevation (NSTEMI) myocardial infarction Status: Inactive Assessment and Plan: 05/14/23 Echo: EF 35-40%, mild LVE, mild LVH, basal to apical inferior and lateral couch are hypokinetic, mid to apical anteroseptal and septal and apex are hypokinetic, grade I diastolic dysfunction (E/e' 16), mod LAE, mild (HERIBERTO 1.6 cm2), trace AI, mod MR, mild-mod TR, mild PI, RVSP 42 mmHg. On aspirin 81 mg daily and heparin drip, Atorvastatin 80 mg daily, Metoprolol Tartate 25 mg BID, Lisinopril 2.5 mg daily. Risks/benefits/alternative to [facility] discuss with patient and she is agreeable to it. Consult [facility] for it. (3) Congestive heart failure: Qualifiers: Heart failure chronicity: acute Heart failure type: unspecified Qualified Code(s): I50.9 - Heart failure, unspecified Code(s): I50.9 - Heart failure, unspecified Status: Inactive Assessment and Plan: Euvolemic now. Acute systolic and diastolic heart failure. Had LOC 2 days ago due to hypotension probably from volume depletion. Stopped Lasix IV and given some IVF. Started Jardiance 10 mg daily. Subjective Date/time seen: 05/16/23 07:53 Interval history: Denies chest pain or sob. Exam Const: General: cooperative, healthy appearing and comfortable Orientation/consciousness: oriented to person, oriented to place and oriented to time Resp: Auscultation: clear to auscultation bilaterally, no crackles, no rales, no rhonchi and no wheezes Cardio: Rate: regular rate Rhythm: regular rhythm Heart sounds: Murmur heart sound present (II/ systolic murmur RICS) Peripheral pulses: dorsalis pedis present Other: significant bilateral varicose veins of legs Neuro: General: oriented to person, oriented to place and oriented to time Extrem: Right lower extremity: no edema Left lower extremity: no edema Objective Data Vital Signs Vital Signs: Vital Signs - 24 hr 05/15/23 08:07 05/15/23 08:59 05/15/23 08:00 Temperature 96.3 F L Pulse Rate 62 72 68 Respiratory Rate 18 Blood Pressure 138/62 Pulse Oximetry 96 Oxygen Delivery 05/15/23 08:00 05/15/23 10:00 05/15/23 12:07 Temperature 97.0 F L Pulse Rate 68 76 59 L Respiratory Rate 16 18 Blood Pressure 134/68 Pulse Oximetry 96 98 Oxygen Delivery Room Air 05/15/23 12:00 05/15/23 12:00 05/15/23 14:00 Temperature Pulse Rate 69 69 73 Respiratory Rate 18 Blood Pressure Pulse Oximetry 98 Oxygen Delivery Room Air 05/15/23 15:49 05/15/23 16:00 05/15/23 16:46 Temperature 96.5 F L Pulse Rate 65 61 Respiratory Rate 20 Blood Pressure 138/74 Pulse Oximetry 97 97 Oxygen Delivery Room Air 05/15/23 18:00 05/15/23 20:10 05/15/23 20:00 Temperature 97.8 F Pulse Rate 63 65 66 Respiratory Rate 18 Blood Pressure 122/60 Pulse Oximetry 99 Oxygen Delivery 05/15/23 20:00 05/15/23 23:55 05/16/23 03:37 Temperature 97.7 F 97.6 F Pulse Rate 80 58 L 62 Respiratory Rate 20 18 Blood Pressure 115/60 121/61 Pulse Oximetry 95 97 Oxygen Delivery 05/16/23 00:00 05/16/23 04:00 05/15/23 22:00 Temperature Pulse Rate 70 68 77 Respiratory Rate Blood Pressure Pulse Oximetry Oxygen Delivery 05/16/23 02:00 05/16/23 06:00 Temperature Pulse Rate 70 67 Respiratory Rate Blood Pressure Pulse Oximetry Oxygen Delivery Intake/Output Intake/Output: Intake & Output 05/13/23 05/14/23 05/15/23 05/16/23 23:59 23:59 23:59 23:59 Intake Total 580 1520 0 Output Total 700 1225 400 Balance -120 295 -400 Meds/Results Medications: Active Medications Generic Name Dose Route Start Last Admin Trade Nam
[2023-05-16 08:00] LABS: Glucose Point of Care 113 mg/dl (65-105)
[2023-05-16] MEDS: METOPROLOL TARTRATE 25 MG TABLET PO ×2 (08:24→20:27)
[2023-05-16] MEDS: lisinopriL 2.5 MG TABLET PO (08:25)
[2023-05-16] MEDS: HEPARIN SOD/D5W 100 UNITS/ML 25,000 UNITS/250 ML BAG 11 UNITS IV CONT (09:03)
[2023-05-16] MEDS: ATORVASTATIN 40 MG TABLET 80 MG PO (09:10)
--- NOTE | 2023-05-16 10:32 | WPDMODSED ---
Moderate Sedation Note-Pt Data Patient Data Diagnosis: non ST-elevation [place] Present Complaint: no complaints this morning Procedure to be performed/Plan: left heart catheterization Allergies Allergy/AdvReac Type Severity Reaction Status Date / Time No Known Allergies Allergy Verified 05/14/23 06:03 Home Medications Medication Instructions Recorded Confirmed Type hydrocodone 5 mg-acetaminophen 325 1 tablet PO Q8H PRN Pain (Scale 05/14/23 05/14/23 History mg tablet Score 4-6) Current Medications: Active Medications Acetaminophen (Acetaminophen 500 Mg Tablet) 1,000 mg PO Q4H PRN PRN Reason: Mild Pain (1-3) or Fever Hydrocodone Bitart/Acetaminophen (Hydrocodone/Acetaminophen (*Crx) 5-325 Mg Tablet) 1 tab PO Q4H PRN PRN Reason: Moderate Pain (4-6) Al Hydrox/Mg Hydrox/Simethicone (Mag Hydrox/Al Hydrox/Simeth 30 Ml Udc) 30 ml PO QID PRN PRN Reason: Dyspepsia Aspirin (Aspirin 81 Mg Enteric Tablet) 81 mg PO QAM [facility] Last Admin: 05/16/23 09:10 Dose: Not Given Atorvastatin Calcium (Atorvastatin 40 Mg Tablet) 80 mg PO DAILY [facility] Last Admin: 05/16/23 09:10 Dose: 80 mg Dextrose (Dextrose 50% 25 Gm/50 Ml Syringe) 12.5 gm IV PUSH PRN PRN; Protocol PRN Reason: Hypoglycemia Empagliflozin (Empagliflozin 10 Mg Tablet) 10 mg PO DAILY [facility] Last Admin: 05/16/23 09:11 Dose: Not Given Furosemide (Furosemide Inj 40 Mg/4 Ml Vial) 40 mg IV PUSH BID [facility] Last Admin: 05/14/23 10:02 Dose: 40 mg Glucagon (Glucagon For Inj 1 Mg Vial) 1 mg IM PRN PRN; Protocol PRN Reason: Hypoglycemia Glucose (Glucose Oral Gel 15 Gm Of Glucse In 37.5 Gm Tube) 15 gm PO PRN PRN; Protocol PRN Reason: Hypoglycemia Heparin Sodium (Porcine) (Heparin Sodium 5,000 Units/Ml Vial) 2,000 units IV PUSH PRN PRN PRN Reason: aPTT 55 - 70 seconds Last Admin: 05/14/23 18:36 Dose: 2,000 units Heparin Sodium (Porcine) (Heparin Sodium 5,000 Units/Ml Vial) 4,500 units IV PUSH PRN PRN PRN Reason: aPTT less than 55 seconds Heparin Sodium/Dextrose (Heparin Sodium/D5w 100 Units/Ml) 25,000 units in 250 mls @ 11 mls/hr IV CONT .[id number] [facility]; Protocol Last Admin: 05/16/23 09:03 Dose: 1,100 units/hr, 11 mls/hr Dextrose (Dextrose 5% 1,000 Ml) 1,000 mls @ 100 mls/hr IVPB PRN PRN; Protocol PRN Reason: Hypoglycemia Insulin Aspart (Insulin Aspart (*Bkc) 100 Units/Ml) 2 - 5 units SUB-Q TIDWM [facility]; Protocol Last Admin: 05/16/23 08:20 Dose: Not Given Lisinopril (Lisinopril 2.5 Mg Tablet) 2.5 mg PO QAM [facility] Last Admin: 05/16/23 08:25 Dose: 2.5 mg Magnesium Hydroxide (Magnesium Hydroxide Susp 30 Ml Udc) 30 ml PO DAILY PRN PRN Reason: Constipation Metoprolol Tartrate (Metoprolol Tartrate 25 Mg Tablet) 25 mg PO Q12HR [facility] Last Admin: 05/16/23 08:24 Dose: 25 mg Morphine Sulfate (Morphine Sulfate (*Crx) 2 Mg/Ml Inj) 1 mg IV PUSH Q4H PRN PRN Reason: Pain Rated 7-10 Ondansetron HCl (Ondansetron Inj 4 Mg/2 Ml Vial) 4 mg IV PUSH Q6H PRN PRN Reason: Nausea And Vomiting Ondansetron HCl (Ondansetron Inj 4 Mg/2 Ml Vial) 4 mg IV PUSH Q6H PRN PRN Reason: Nausea And Vomiting Sedation/Anesthesia: No previous sedation/anesthesia problems (including family history). [facility] Past Medical History Medical History Osteoarthritis Surgical History Surgical History History of appendectomy Age 17 History of hysterectomy Age 43 History of right hip replacement 2019 Family History Family History Mother Family history of arthritis Father No problems noted. Social History Social History Social History: Patient lives with her Julio and has 2 sons. One son is a bristle machine operator while the other is a retired truck crane operator. Her was a coal carrier, and has some health issues. She currently wishes to
--- NOTE | 2023-05-16 11:35 | P.PNIM_ITS ---
Progress Note: A&P Assessment and Plan (1) Non-ST elevation SC (NSTEMI): Code(s): I21.4 - Non-ST elevation (NSTEMI) myocardial infarction Status: Inactive Assessment and Plan: * Presented to the ED with shortness of breath, and noted to have palpitations * Troponins elevated at 415.3, 3.190 * BNP elevated 7027 * Echo reviewed * EKG abnormal * Chest xray shows PNA va Pulmonary edema * Continue to trend * Repeat EKG ordered * Heparin drip * Cardiology consulted * Supplemental oxygen as indicated * seems to most likely be contributing to her shortness of breath * cath in am (2) Congestive heart failure: Qualifiers: Heart failure chronicity: acute Heart failure type: unspecified Qualified Code(s): I50.9 - Heart failure, unspecified Code(s): I50.9 - Heart failure, unspecified Status: Inactive Assessment and Plan: * Most likely a combination of systolic and diastolic heart failure in exacerbation * BNP elevated at 7027 * Trops elevated, however appear flat at this time 415.3/3.190 * Repeat Echo ordered * Daily weights * Strict I&Os * Trend urine output * continue metoprolol that was initiated in the ED * Start aspirin and statin * Lasix 40mg IV BID for now * Cardiology consulted * planned cath today (3) Hyperlipidemia: Qualifiers: Hyperlipidemia type: mixed hyperlipidemia Qualified Code(s): E78.2 - Mixed hyperlipidemia Code(s): E78.5 - Hyperlipidemia, unspecified Status: Acute Assessment and Plan: * Lipid panel triglycerides 105, cholesterol 185, LDL 107, HDL 47 * Start atorvastatin 40mg PO Daily (4) Elevated troponin: Code(s): R77.8 - Other specified abnormalities of plasma proteins Status: Acute Assessment and Plan: * Trop elevated at 415.3, 3.190 * Could be related to CHF * Cardiology consulted * Continue to trend * EKG abnormal * Heparin gtt (5) Hypertension: Qualifiers: Hypertension type: primary hypertension Qualified Code(s): I10 - Essential (primary) hypertension Code(s): I10 - Essential (primary) hypertension Status: Acute Assessment and Plan: * BP is 151/78 * Metoprolol started * Start lisinopril 2.5mg PO daily * Trend BP * Adjust therapy as indicated * hold lasix due to hpyotensive episode 05/14/2023 (6) New onset type 2 diabetes mellitus: Code(s): E11.9 - Type 2 diabetes mellitus without complications Status: Acute Assessment and Plan: * Glucose 155 in the ED * Currently 110 * A1c 6.2 * Start with diet control * stable at this time * accu cheks * hypoglycemia protocol * trend labs Subjective Date/time seen: 05/16/23 11:35 Interval history: No overnight events. Denies any new complaints. Review of Systems Review of Systems: All systems reviewed & are unremarkable except as noted in HPI and below Exam Narrative: General: well-nourished, ill-appearing 88-year-old female, not in acute dsitress Neuro: awake, alert and oriented x4, speech clear, no focal neuro deficits noted HEENMT: normocephalic, atraumatic, EOMI, sclerae anicteric, moist oral mucosa Respiratory: Clear to auscultation bilaterally without crackles, rhonchi or
--- NOTE | 2023-05-16 11:35 | PM.IMPN ---
Progress Note: A&P Assessment and Plan (1) Non-ST elevation [place] (NSTEMI): Code(s): I21.4 - Non-ST elevation (NSTEMI) myocardial infarction Status: Inactive Assessment and Plan: Presented to the ED with shortness of breath, and noted to have palpitations Troponins elevated at 415.3, 3.190 BNP elevated 7027 Echo reviewed EKG abnormal Chest xray shows PNA va Pulmonary edema Continue to trend Repeat EKG ordered Heparin drip Cardiology consulted Supplemental oxygen as indicated seems to most likely be contributing to her shortness of breath cath in am (2) Congestive heart failure: Qualifiers: Heart failure chronicity: acute Heart failure type: unspecified Qualified Code(s): I50.9 - Heart failure, unspecified Code(s): I50.9 - Heart failure, unspecified Status: Inactive Assessment and Plan: Most likely a combination of systolic and diastolic heart failure in exacerbation BNP elevated at 7027 Trops elevated, however appear flat at this time 415.3/3.190 Repeat Echo ordered Daily weights Strict I&Os Trend urine output continue metoprolol that was initiated in the ED Start aspirin and statin Lasix 40mg IV BID for now Cardiology consulted planned cath today (3) Hyperlipidemia: Qualifiers: Hyperlipidemia type: mixed hyperlipidemia Qualified Code(s): E78.2 - Mixed hyperlipidemia Code(s): E78.5 - Hyperlipidemia, unspecified Status: Acute Assessment and Plan: Lipid panel triglycerides 105, cholesterol 185, LDL 107, HDL 47 Start atorvastatin 40mg PO Daily (4) Elevated troponin: Code(s): R77.8 - Other specified abnormalities of plasma proteins Status: Acute Assessment and Plan: Trop elevated at 415.3, 3.190 Could be related to CHF Cardiology consulted Continue to trend EKG abnormal Heparin gtt (5) Hypertension: Qualifiers: Hypertension type: primary hypertension Qualified Code(s): I10 - Essential (primary) hypertension Code(s): I10 - Essential (primary) hypertension Status: Acute Assessment and Plan: BP is 151/78 Metoprolol started Start lisinopril 2.5mg PO daily Trend BP Adjust therapy as indicated hold lasix due to hpyotensive episode 05/14/2023 (6) New onset type 2 diabetes mellitus: Code(s): E11.9 - Type 2 diabetes mellitus without complications Status: Acute Assessment and Plan: Glucose 155 in the ED Currently 110 A1c 6.2 Start with diet control stable at this time accu cheks hypoglycemia protocol trend labs Subjective Date/time seen: 05/16/23 11:35 Interval history: No overnight events. Denies any new complaints. Review of Systems Review of Systems: All systems reviewed & are unremarkable except as noted in HPI and below Exam Narrative: General: well-nourished, ill-appearing 88-year-old female, not in acute dsitress Neuro: awake, alert and oriented x4, speech clear, no focal neuro deficits noted HEENMT: normocephalic, atraumatic, EOMI, sclerae anicteric, moist oral mucosa Respiratory: Clear to auscultation bilaterally without crackles, rhonchi or wheezes, mildly labored breathing, unable to complete sentences Cardio: regular rate, irregular rhythm with S1-S2 Abdomen: nondistended, normoactive bowel sounds, soft, nontender to palpation Extremities: no edema, erythema, or tenderness to palpation, DP pulses 2+ bilaterally Skin: no rashes or lesions, warm and dry Psych: appropriate mood and affect, judgment and insight intact Objective Data Vital Signs Vital Signs: Vital Signs - 24 hr 05/15/23 12:07 05/15/23 12:00 05/15/23 12:00 Temperature 97.0 F L Pulse Rate 59 L 69 69 Respiratory Rate 18 18 Blood Pressure 134/68 Pulse Oximetry 98 98 Oxygen Delivery Room Air 05/15/23 14:00
[2023-05-16 11:47] LABS: Glucose Point of Care 112 mg/dl (65-105)
--- NOTE | 2023-05-16 14:44 | PM.TDS ---
Transfer Discharge Sum: Prov Provider Date of admission: 05/14/23 05:47 Primary care physician: Cleveland Alfonso DO Admitting clinician: Vera Hernández MD Consults: 05/14/23 Consult to Physician Routine Comment: Consulting Provider: Cleve Rosa Reason for consultation: elevated Trop, afib RVR Has provider been notified: Yes 05/16/23 Consult to Physician Routine Comment: Consulting Provider: Rick Mares Reason for consultation: post cardiac cath Has provider been notified: Yes Consult to Physician Routine Comment: spoke with Dr. Garcia @[phone] Consulting Provider: Samuel Garcia call center specialist/MD group to consult: HCG Reason for consultation: [facility] Has provider been notified: Yes DS: Admitting Diagnosis Discharge Date 05/17/23 Admitting Diagnosis Shortness of breath DS: Discharge Diagnosis Discharge Diagnosis (1) Non-ST elevation CT (NSTEMI): Code(s): I21.4 - Non-ST elevation (NSTEMI) myocardial infarction Status: Inactive (2) Congestive heart failure: Qualifiers: Heart failure chronicity: acute Heart failure type: unspecified Qualified Code(s): I50.9 - Heart failure, unspecified Code(s): I50.9 - Heart failure, unspecified Status: Inactive (3) Hyperlipidemia: Qualifiers: Hyperlipidemia type: mixed hyperlipidemia Qualified Code(s): E78.2 - Mixed hyperlipidemia Code(s): E78.5 - Hyperlipidemia, unspecified Status: Acute (4) Elevated troponin: Code(s): R77.8 - Other specified abnormalities of plasma proteins Status: Acute (5) Hypertension: Qualifiers: Hypertension type: primary hypertension Qualified Code(s): I10 - Essential (primary) hypertension Code(s): I10 - Essential (primary) hypertension Status: Acute (6) New onset type 2 diabetes mellitus: Code(s): E11.9 - Type 2 diabetes mellitus without complications Status: Acute Transfer Discharge Sum: Med Medications Active and Home Medications: Home Medications hydrocodone 5 mg-acetaminophen 325 mg tablet 1 tablet PO Q8H PRN Pain (Scale Score 4-6) 05/14/23 [History Confirmed 05/14/23] Transfer Discharge Sum: Hosp Hospital Course Hospital course: Carine Mcnally is a 88 year old female who presented with shortness of breath found to have elevated troponin suggestive of non ST elevation CT. chest x-ray showed pneumonia versus pulmonary edema. Was started on IV diuresis. Cardiology was consulted. Aspirin statin and heparin drip. Underwent cardiac catheterization on 05/16/2023 showed heavily calcified coronary arteries with critical distal left main to ostial LAD stenosis of 95-99%. Involvement of the distal left main disease appears to also involve the circumflex ostium with a napkin ring-like stenosis seen in the al AO caudal projection. Moderate LV dysfunction as well as mild aortic stenosis. Dominant right coronary artery without significant lesion. She was suggested to be transferred to her facility for cardiothoracic surgery evaluation for CABG. She was eventually transferred to [facility] for the same. Time Spent with Patient Time attestation: Total time spent providing and/or coordinating transfer services: 30 minutes Exam Narrative: General: well-nourished, ill-appearing 88-year-old female, not in acute dsitress Neuro: awake, alert and oriented x4, speech clear, no focal neuro deficits noted HEENMT: normocephalic, atraumatic, EOMI, sclerae anicteric, moist oral mucosa Respiratory: Clear to auscultation bilaterally without crackles, rhonchi or wheezes, mildly labored breathing, unable to complete sentences Cardio: regular rate, irregular rhythm with S1-S2 Abdomen: nondistended, normoactive bowel sounds, soft, nontender to palpation Extremities: no edema, erythema, or tenderness to palpation, DP pulses 2+ bilaterally Skin: no rashes or lesions, warm and dry Psych: ap
--- NOTE | 2023-05-16 15:04 | WPDCARDPROC ---
Cardiac Cath Procedure Note Date of procedure:: 05/16/23 Performing physician:: Simone Peralta MD Indication:: acute coronary syndrome Brief clinical history:: this is an 88-year-old woman without previous history of coronary disease who entered the hospital over the weekend with chest pain episode with a moderate troponin rise, because of non ST elevation NV left heart catheterization has been recommended. Procedure Procedure performed:: Coronary angiography Sedation/Medication given:: fentanyl 25 mg Versed 2 mg case start time 2:35 p.m. sedation provided by Sabra Lara RN, trained observer Access site:: right femoral artery Estimated blood loss:: 25 cc Procedure note:: patient was brought to the cardiac catheterization lab in the postabsorptive state where the right femoral triangle was prepped and draped in the usual fashion. Anesthesia was provided with 1% lidocaine infiltrated locally. Using the modified Seldinger technique a 5 Turkish sheath was placed into the right femoral artery. After this I advanced a J-tip guidewire and a angled pigtail catheter into the aortic root. The pigtail catheter would not easily cross into the left ventricle or with the guidewire. For this reason I withdrew this and proceeded with coronary angiography. Echocardiogram has been performed demonstrating moderate LV systolic dysfunction and mild aortic valve stenosis. Following this the right coronary artery was engaged and injected using a 5 Turkish JR4 catheter. After this the left coronary artery was engaged and injected using a 5 Turkish FL4 catheter. Following this the cineangiograms were then reviewed. I secured the sheath to the puncture site with 2-0 silk tie and gave the patient 5000 unit heparin bolus for ACT of 137. Patient has critical left main coronary stenosis as described below with will be transferred to the ICU in a dysphasia transfer for advanced revascularization CABG versus left main PCI Findings:: the left main coronary artery is significantly calcified. The left main has high-grade distal stenosis of 99%. This extends into the ostium of the LAD which also has 95-99% stenosis. The LAD is also heavily calcified proximally. The left anterior descending as described above is heavily calcified proximally. The distal left main stenosis extends into the ostium of the LAD which is also 95-99% narrowed. A in the region of the 1st diagonal branch there is moderate 50% stenosis. The remainder of the LAD is free of significant lesions but is mildly diffusely diseased. The circumflex is a medium caliber vessel giving rise to the marginal branches. The circumflex has mild diffuse atherosclerotic disease. The ostium of the circumflex does appear to be involved with the distal left main disease with a napkin ring like lesion seen in the HONDURAN caudal projection. The right coronary artery is mildly calcified is dominant to the posterior circulation there is mild diffuse coronary disease throughout the no flow-limiting lesions are seen. Conclusion:: 1. Heavily calcified coronary arteries with critical distal left main into ostial LAD stenosis of 95-99% as described above. 2. Involvement of the distal left main disease appears to also involve the circumflex ostium with a napkin ring like stenosis seen in the HONDURAN caudal Projection. 3. Dominant right coronary artery without significant lesion 4. moderate LV dysfunction noted by echo as well as mild aortic stenosis. LV was therefore not studied during this exam as a tortuous aorta was creating some challenge in crossing the aortic valve. Simone Peralta MD FACC
[2023-05-16 15:08] LABS: Activated Clotting Time 137 SEC (74-137)
[2023-05-16] MEDS: SODIUM CHLORIDE 0.9% IV 1,000 ML 125 ML IV CONT (16:08)
[2023-05-16] MEDS: ACETAMINOPHEN 500 MG TABLET 1000 MG PO (20:25)
[2023-05-16] MEDS: ONDANSETRON INJ 4 MG/2 ML VIAL IV PUSH (20:25)
[2023-05-16 21:12] LABS: Glucose Point of Care 91 mg/dl (65-105)
[2023-05-17] VITALS: BP 101/51; PULSE 61; PULSE 62; PULSE 65; RESP 22; TEMP 37.6; O2SAT 75; O2SAT 98
[2023-05-17 00:48] LABS: Partial Thromboplastin Time 89.9 SECONDS (22.3-36.8)
[2023-05-17 01:44] LABS: Influenza A QL RT-PCR Negative (Negative); Influenza B QL RT-PCR Negative (Negative); RSV RNA, RT-PCR Negative (Negative); SARS-CoV-2 RNA PCR Negative (Negative)
[2023-05-17 02:00] VITALS: PULSE 59; RESP 18; TEMP 37.2; O2SAT 98
--- NOTE | 2023-05-17 02:21 | PC.NURSE ---
This RN received call from [facility] transfer center at 12:24 AM with confirmation of bed assignment at [facility] to bed [id number] Bland accepting physician. Report called to MAX Vasquez at 12:32 AM. EMS notified of need for transfer and provided an ETA of 0300. Patient's son Yohan at bedside. Consent obtained for transfer from son as patient is confused at this time. All vital signs stable. Will continue to monitor.
[2023-05-17 04:00] VITALS: BP 105/71; PULSE 59; PULSE 64; RESP 16; RESP 18; TEMP 37; O2SAT 100; O2SAT 98
[2023-05-17 04:44] LABS: Basophils Percent Auto 0.7 % (0.2-1.2); Eosinophils Absolute Auto 0.1 K/mm3 (0-0.3); Eosinophils Percent Auto 1.3 % (0-4.4); Hematocrit 36.1 % (37.0-47.0); Hemoglobin 11.6 g/dL (12.0-15.0); Immature Granulocyte Absolute 0.02 K/mm3 (0.00-0.031); Immature Granulocyte Percent A 0.4 % (0-0.5); Lymphocytes Percent Auto 23.9 % (18.3-44.2); Mean Corpuscular HGB Conc 32.1 g/dl (32-36); Mean Corpuscular Hemoglobin 32.2 pg (26-34); Mean Corpuscular Volume 100.3 fl (80-100); Mean Platelet Volume 10.4 fl (7.4-10.4); Monocytes Absolute Auto 0.5 K/mm3 (0.1-0.6); Monocytes Percent Auto 11.7 % (2.6-8.5); Neutrophils Absolute Auto 2.9 K/mm3 (1.3-6.7); Platelet Count Result 196 k/mm3 (150-375); Red Cell Distribution Width 12.6 % (11.5-14.5); White Blood Count 4.6 K/mm3 (4.5-10.0)
[2023-05-17 04:54] LABS: Partial Thromboplastin Time 110.5 SECONDS (22.3-36.8)
[2023-05-17 04:55] LABS: Alanine Aminotransferase 21 U/L (6-35); Albumin Level 3.3 g/dL (3.5-5.1); Alkaline Phosphatase 80 U/L (38-126); Anion Gap 3 mmol/L (8-16); Aspartate Amino Transferase 31 U/L (14-36); Bilirubin,Total 1.9 mg/dL (0.2-1.3); Blood Urea Nitrogen 32 mg/dL (7-17); Calcium 8.3 mg/dL (8.4-10.2); Carbon Dioxide 30 mmol/L (22-30); Chloride 106 mmol/L (98-107); Estimated CRCL calculation 37 ml/min; Estimated Glomerular Filt Rate > 60; Glucose 102 mg/dL (65-110); Potassium 3.7 mmol/L (3.4-5.0); Sodium 139 mmol/L (137-145)
[2023-05-17 06:00] VITALS: PULSE 78
== END 2023-05-17 06:03 | disposition short-term general hospital (02) | DRG 280 ==
LOC: ANHIMU 05-16 15:26 → ANHICU 05-16 15:32
PROVIDERS: Internal Medicine; Internal Medicine Cardiovascular Disease; Nurse Practitioner; Physician Assistant; Specialist; Admitting Provider Internal Medicine; PCP Family Medicine; Visit Provider Internal Medicine
PROC: 4A023N7 Measurement of Cardiac Sampling and Pressure, Left Heart, Percutaneous Approach (ICD-10-PCS; CPT 93454; principal; 2023-05-16 14:30)
DX: I21.4 Non-ST elevation (NSTEMI) myocardial infarction (principal); I50.41 Acute combined systolic (congestive) and diastolic (congestive) heart failure; I11.0 Hypertensive heart disease with heart failure; I25.10 Atherosclerotic heart disease of native coronary artery without angina pectoris; I35.0 Nonrheumatic aortic (valve) stenosis; E78.2 Mixed hyperlipidemia; E11.9 Type 2 diabetes mellitus without complications; M19.90 Unspecified osteoarthritis, unspecified site; Z96.641 Presence of right artificial hip joint; I48.91 Unspecified atrial fibrillation; I95.9 Hypotension, unspecified; Z90.710 Acquired absence of both cervix and uterus; Z90.49 Acquired absence of other specified parts of digestive tract
CPT/HCPCS: 36415; 36600; 70450; 80048; 80053; 80061; 82805; 82948; 83036; 83735; 84484; 85025; 85610; 85730; 87086; 87637; 93005; 93306; 93454; A9270; C1887; C1894; J1644; J1940; J2250; J2405; J3010; J7030; J7040

== ENCOUNTER 2023-08-20 11:34 | Outpatient (CLI) | payer MEDICARE, SELFPAY ==
[2023-08-20 12:15] LABS: Anion Gap 13 mmol/L (8-16); Blood Urea Nitrogen 24 mg/dL (7-18); Calcium 9.2 mg/dL (8.5-10.1); Carbon Dioxide 23 mmol/L (21-32); Chloride 107 mmol/L (98-108); Cholesterol 121 mg/dL (0-200); Estimated Glomerular Filt Rate > 60; Glucose 126 mg/dL (70-99); HDL Direct 49 mg/dL (40-60); LDL Cholesterol Calculated 53 mg/dL (<130); Osmolality Calculated 302 mOsm/kg (285-295); Potassium 4.2 mmol/L (3.5-5.1); Sodium 143 mmol/L (136-145); Triglycerides 97 mg/dL (0-150)
== END 2023-08-20 11:35 | disposition home or self-care (01) ==
LOC: CHSLAB 11:39
PROVIDERS: PCP Family Medicine
DX: I21.4 Non-ST elevation (NSTEMI) myocardial infarction (principal)
CPT/HCPCS: 36415; 80048; 80061

== ENCOUNTER → 2023-10-10 10:27 | Outpatient (CLI) | payer MEDICARE, SELFPAY ==
--- NOTE | ~2023-10-10 | XR_ITS ---
Right Shoulder Technique: AP and axillary views were obtained. Clinical History: Osteoarthritis COMPARISON: 07/09/2016 Findings: No fracture or dislocation is seen. There is advanced degenerative change of the glenohumer al joint. AC joint is intact. Prominent inferomedial humeral head osteophyte present. Probable loose body present in the axillary pouch of the joint. Soft tissues are unremarkable. Impression: Severe osteoarthritis of the glenohumeral joint. Probable associated loose body in the axillary pouch of the joint. Reviewed, dictated and finalized at location M. SHOP MANAGER Impression: Severe osteoarthritis of the glenohumeral joint. Probable associated loose body in the axillary pouch of the joint.
--- NOTE | ~2023-10-10 | XR_ITS ---
Right Knee Technique: AP and lateral views were obtained. Clinical History: Pain Findings: No fracture or dislocation is seen. Osseous alignment is anatomic. There is moderate to sev ere tricompartmental osteoarthritis. Soft tissues are unremarkable. No joint effusion is seen. Impression: Moderate to severe tricompartmental osteoarthritis. Reviewed, dictated and finalized at [facility]. ISHING EDITOR Impression: Moderate to severe tricompartmental osteoarthritis.
--- NOTE | ~2023-10-10 | XR_ITS ---
Left Shoulder Technique: AP and axillary views were obtained. Clinical History: Osteoporosis COMPARISON: 09/08/2020 Findings: No fracture or dislocation is seen. There is severe degenerative change of the left glenohu meral joint, with large inferomedial humeral head osteophyte present, and joint space narrowing. AC j oint is intact. Soft tissues are unremarkable. Impression: Severe osteoarthritis of the glenohumeral joint, as detailed above. Reviewed, dictated and finalized at location M. NTORY CONTROL CLERK Impression: Severe osteoarthritis of the glenohumeral joint, as detailed above.
--- NOTE | ~2023-10-10 | XR_ITS ---
Left Knee Technique: AP and lateral views were obtained. Clinical History: Osteoarthritis Findings: No fracture or dislocation is seen. There is severe tricompartmental osteoarthritis. There is medial compartment narrowing. Soft tissues are unremarkable. No joint effusion is seen. Impression: Severe tricompartmental osteoarthritis, worst in the medial compartment. Reviewed, dictated and finalized at location . RVISOR Impression: Severe tricompartmental osteoarthritis, worst in the medial compartment.
== END ==
PROVIDERS: PCP Pain Medicine Pain Medicine; Visit Provider Pain Medicine Pain Medicine
DX: M17.0 Bilateral primary osteoarthritis of knee (principal); M19.012 Primary osteoarthritis, left shoulder; M19.011 Primary osteoarthritis, right shoulder
CPT/HCPCS: 73030; 73560

== ENCOUNTER 2023-12-26 11:27 | Outpatient (CLI) | payer MEDICARE, SELFPAY ==
--- NOTE | 2023-12-26 11:39 | ECG_ITS ---
Measurements Intervals [place] Rate: 87 P: 92 OR: 204 QRS: -29 QRSD: 121 T: 106 QT: 365 QTc: 439 Interpretive Statements SINUS RHYTHM WITH OCCASIONAL VENTRICULAR PREMATURE COMPLEXES POSSIBLE RIGHT VENTRICULAR CONDUCTION DELAY [RSR (QR) IN V1/V2] LEFT VENTRICULAR HYPERTROPHY AND ST-T CHANGE [VOLTAGE CRITERIA PLUS ST/T ABNORMALITY] LEFT AXIS DEVIATION PROBABLE LATERAL MYOCARDIAL INFARCTION , OF INDETERMINATE AGE [35 ms Q WAVE IN I/aVL/V5/V6] COMPARED TO ECG 05/15/2023 12:24:07 1 PVCS SEEN, NO OTHER SIGNIFICANT CHANGE Electronically Signed On 12-26-2023 15:19:02 STEMHOLE BORER AND TOPPER by Simone Peralta M.D.
== END 2023-12-26 11:28 | disposition home or self-care (01) ==
LOC: CHSCARD 11:29
PROVIDERS: PCP Family Medicine; Visit Provider Family Medicine
DX: I25.10 Atherosclerotic heart disease of native coronary artery without angina pectoris (principal); R94.31 Abnormal electrocardiogram [ECG] [EKG]
CPT/HCPCS: 93005

== ENCOUNTER 2024-02-28 08:47 | Outpatient (CLI) | payer MEDICARE, SELFPAY ==
--- NOTE | ~2024-02-28 | MMUS_ITS ---
EXAMINATION: MM diagnostic chadd BI w juice, US breast BI limited HISTORY: Palpable left breast abnormality. TECHNIQUE: Additional 3-D tomosynthesis images of the breasts were performed and synthetic 2-D images were generated. CAD analysis was submitted and interpreted. High resolution limited bilateral breast ultrasound was performed. COMPARISON: None BREAST PARENCHYMAL COMPOSITION: Not dense: There are scattered areas of fibroglandular density. FINDINGS: MAMMOGRAPHIC FINDINGS: There is a low-density mass in the lower inner quadrant of the right breast, middle third. There is a spiculated mass containing pleomorphic calcifications in the upper outer quadrant of the left breast , middle third. ULTRASOUND: Limited right breast ultrasound: At 5:00, 5 cm from the nipple there is a 3 mm cyst. At 3:00 near the nipple there is an oval hypoechoic mass measuring 5 mm without internal vascularity, likely a compli cated cyst. Limited left breast ultrasound: At 2-3:00, 8 cm from the nipple, there is an irregular shaped lobulat ed hypoechoic mass measuring 1.9 x 1.5 x 1.5 cm with mixed posterior attenuation. There are internal calcifications. This corresponds to the mass seen on mammography. IMPRESSION: 1. Complex spiculated left breast mass at 2-3:00, 8 cm from the nipple. Ultrasound-guided left breast biopsy recommended. 2. Probable benign findings of the right breast. Six-month follow-up diagnostic right mammogram and u ltrasound recommended. BI-RADS category 5: Highly suspicious abnormality. Reviewed, dictated and finalized at location B. IMPRESSION: 1. Complex spiculated left breast mass at 2-3:00, 8 cm from the nipple. Ultraso und-guided left breast biopsy recommended. 2. Probable benign findings of the right breast. Six-month follow-up diagnostic right mammogram and ultrasound recommended. BI-RADS category 5: Highly suspicious abnormality.
== END 2024-02-28 08:48 | disposition home or self-care (01) ==
LOC: CHSIMG 08:48
PROVIDERS: PCP Family Medicine; Visit Provider Family Medicine
DX: N63.22 Unspecified lump in the left breast, upper inner quadrant (principal); R92.8 Other abnormal and inconclusive findings on diagnostic imaging of breast
CPT/HCPCS: 76642; 77062; 77066; G0279

== ENCOUNTER 2024-03-01 13:40 | Outpatient (CLI) | payer MEDICARE, SELFPAY ==
[2024-03-01 14:26] LABS: Basophils Absolute Auto 0.04 K/mm3 (0.00-0.10); Basophils Percent Auto 0.4 % (0.0-1.0); Eosinophils Absolute Auto 0.09 K/mm3 (0.02-0.50); Eosinophils Percent Auto 0.9 % (1.0-6.0); Hemoglobin 11.3 g/dL (11.7-13.8); Immature Granulocyte Absolute 0.05 K/mm3 (0.00-0.00); Immature Granulocyte Percent A 0.5 % (0.0-0.0); Lymphocytes Absolute Auto 0.72 K/mm3 (1.10-4.50); Lymphocytes Percent Auto 6.8 % (18.0-42.0); Mean Corpuscular HGB Conc 32.3 g/dL (32-36); Mean Corpuscular Volume 102.3 fL (78.0-102.0); Mean Platelet Volume 9.4 fl (9.2-11.8); Monocytes Absolute Auto 0.66 K/mm3 (0.10-0.90); Monocytes Percent Auto 6.3 % (2.0-11.0); Neutrophils Absolute Auto 8.98 K/mm3 (1.70-7.20); Neutrophils Percent Auto 85.1 % (50.0-70.0); Platelet Count Result 363 K/mm3 (150-420); Red Blood Count 3.42 M/mm3 (4.20-5.40); Red Cell Distribution Width 13.2 % (11.6-14.4); White Blood Count 10.5 K/mm3 (4.8-10.8)
[2024-03-01 15:01] LABS: SARS-CoV-2 RNA PCR Negative (Negative)
[2024-03-01 15:11] LABS: Influenza A QL RT-PCR Negative (Negative); Influenza B QL RT-PCR Negative (Negative); RSV RNA, RT-PCR Negative (Negative)
[2024-03-01 15:17] LABS: Alanine Aminotransferase 19 U/L (14-59); Albumin Level 3.5 g/dL (3.4-5.0); Alkaline Phosphatase 101 U/L (46-116); Anion Gap 8 mmol/L (4-12); Aspartate Amino Transferase 21 U/L (15-37); Bilirubin,Total 1.2 mg/dL (0.00-1.00); Blood Urea Nitrogen 36 mg/dL (7-18); Calcium 8.6 mg/dL (8.5-10.1); Carbon Dioxide 29 mmol/L (21-32); Chloride 105 mmol/L (98-108); Estimated Glomerular Filt Rate 44; Folic Acid 17.2 ng/mL (8.6->20); Glucose 101 mg/dL (70-99); Osmolality Calculated 302 mOsm/kg (285-295); Potassium 4.5 mmol/L (3.5-5.1); Sodium 142 mmol/L (136-145); Total Protein 6.4 g/dL (6.4-8.2); Vitamin B12 212 pg/mL (193-986)
[2024-03-01 15:50] LABS: Thyroid Stimulating Hormone Reflex 0.74 u/IU/mL (0.36-3.74)
== END 2024-03-01 13:41 | disposition home or self-care (01) ==
LOC: CHSLAB 13:42
PROVIDERS: PCP Family Medicine; Visit Provider Family Medicine
DX: I25.10 Atherosclerotic heart disease of native coronary artery without angina pectoris (principal); E53.8 Deficiency of other specified B group vitamins; E03.9 Hypothyroidism, unspecified; R53.83 Other fatigue
CPT/HCPCS: 36415; 80053; 82607; 82746; 84443; 85025; 87637

== ENCOUNTER 2024-03-02 09:11 | Outpatient (CLI) | payer MEDICARE, SELFPAY ==
[2024-03-02 11:12] LABS: Appearance Urine Cloudy (Clear); Bilirubin Urine Negative (Negative); Blood Urine Negative (Negative); Color Urine Light Yellow (Yellow); Glucose Urine UA 1+ (Negative); Ketones Urine Negative (Negative); Leukocyte Esterase Ur Trace (Negative); Nitrate Urine Negative (Negative); Protein Urine Negative (Negative)
[2024-03-02 11:15] LABS: Add Urine Microscopic? YES; Amorphous Sediment Urine Moderate; Bacteria Urine 4+ /hpf; RBC Urine None seen /hpf (0-2); Squamous Epithelial Cell Urine Few /hpf (Few); WBC Urine 0-3 /hpf (0-3)
== END 2024-03-02 09:12 | disposition home or self-care (01) ==
PROVIDERS: PCP Family Medicine; Visit Provider Family Medicine
DX: R53.83 Other fatigue (principal)
CPT/HCPCS: 81001

== ENCOUNTER 2024-03-28 18:49 | Emergency (ER) | payer MEDICARE, SELFPAY ==
--- NOTE | ~2024-03-28 | CT_ITS ---
EXAMINATION: CT abdomen pelvis wo con DATE: 03/28/2024 19:53 INDICATION: Left flank pain. TECHNIQUE: Computed tomography (CT) of the abdomen and pelvis was performed without intravenous contr ast. Automated exposure control and iterative reconstruction technique were employed. The dose-length product was 568.41 mGy-cm. COMPARISON: None. FINDINGS: The visualized portions of the lung bases demonstrate mild atelectasis. No pleural effusion . The heart size is normal. There are coronary artery calcifications. No pericardial effusion. There is a small sliding hiatal hernia. The liver is normal. There are gallstones in the gallbladder, which is normal in size. Calcifications in the spleen are consistent with old granulomatous disease. The p ancreas, adrenal glands, and right kidney are normal. There is a 14 mm cyst in left kidney. There is no urolithiasis. There is diverticulosis of the colon without evidence of diverticulitis. There are n o dilated loops of bowel. The appendix is not visualized. There is calcified atherosclerosis of the a rock and many of the other arteries. There are no pathologically enlarged lymph nodes. There is no fr ee intraperitoneal fluid. There is a total right hip arthroplasty. There is severe lumbar spondylosis and moderate thoracic spondylosis. Thoracolumbar levoscoliosis is noted. IMPRESSION: 1. No etiology for the patient's symptoms. Reviewed, dictated and finalized at location E.
[2024-03-28 18:49] VITALS: BP 145/68; PULSE 84; RESP 18; TEMP 36.6; O2SAT 96
--- NOTE | 2024-03-28 18:59 | ED.BACK ---
HPI - Back Pain/Injury General Chief Complaint: Back Pain/Injury Stated Complaint: left flank /back pain , no injury Source: patient Mode of arrival: ambulatory Limitations: no limitations History of Present Illness HPI Narrative: 88-year-old female with a history of CAD/ non-STEMI status post left main/ lad stent, cardiomyopathy, history of AFib, arthritis( bilateral knees, shoulders, back status post intra-articular injections and chronic Burke 7.5), a recent left breast biopsy 5 days ago, presents to the ER with a 2 hour history of -- severe left flank pain. Pain is intermittent. No radiation of the pain. No nausea /vomiting. No fever. no history of kidney stones. MD elicited complaint: other ( Left flank pain) Pertinent past history: arthritis Onset (ago): hour(s) ( 2 hours) Timing: intermittent Severity: severe Similar Symptoms Previously: No Quality: aching Location: left flank Radiation: none Exacerbating factors: none Relieving factors: none Associated symptoms: denies other symptoms Related Data Home Medications Medication Instructions Recorded Confirmed aspirin 81 mg chewable tablet 81 mg PO DAILY 05/27/23 03/28/24 empagliflozin 10 mg tablet 10 mg PO DAILY 12/26/23 03/28/24 (Jardiance) metoprolol succinate 25 mg 12.5 mg PO DAILY 12/26/23 03/28/24 tablet,extended release 24 hr sacubitril 24 mg-valsartan 26 mg 1 tablet PO BID 12/26/23 03/28/24 tablet (Entresto) spironolactone 25 mg tablet 12.5 mg PO DAILY 12/26/23 03/28/24 Allergies Allergy/AdvReac Type Severity Reaction Status Date / Time No Known Allergies Allergy Verified 03/01/24 12:47 Review of Systems Review of Systems: All systems reviewed & are unremarkable except as noted in HPI and below Constitutional: Constitutional: Reports as per HPI and Reports no additional constitutional complaints Eyes: Eyes: Reports as per HPI and Reports no additional eye complaints ENT: Reports system reviewed and no additional complaints, except as documented and Reports as per HPI Cardiovascular: Cardiovascular: Reports as per HPI and Reports no additional cardiovascular complaints Respiratory: Respiratory: Reports as per HPI and Reports no additional respiratory complaints Gastrointestinal: Gastrointestinal: Reports as per HPI and Reports no additional gastrointestinal complaints Comments: left flank pain Genitourinary: Genitourinary: Reports no additional female genitourinary complaints Musculoskeletal: Musculoskeletal: Reports no additional musculoskeletal complaints and Reports as per HPI Integumentary/Breasts: Skin/Breast: Reports system reviewed and no additional complaints, except as docu and Reports as per HPI Neurologic: Reports system reviewed and no additional complaints, except as documented and Reports as per HPI Psychiatric: Psychiatric: Reports no additional psychiatric complaints and Reports as per HPI Endocrine: Endocrine: Reports no additional endocrine complaints and Reports as per HPI Hematologic/Lymphatic: Hematologic/Lymphatic: Reports no additional hematologic/lymphatic complaints and Reports as per HPI Allergic/Immunologic: Allergic/Immunologic: Reports no additional allergic/immunologic complaints and Reports as per HPI PMFSH Past Medical History Medical History Osteoarthritis Surgical History Surgical History History of appendectomy Age 17 History of hysterectomy Age 43 History of right hip replacement 2019 Family History Family History Mother Family history of arthritis Father No problems noted. Social History Social History Social History: Patient lives with her Julio and has 2 sons. One son is a computer numerical control machinist while the other is a retired t
--- NOTE | 2024-03-28 19:04 | PC.NURSE ---
report to mitesh cronin.
[2024-03-28 19:17] LABS: Add Urine Microscopic? YES; Appearance Urine Cloudy (Clear); Bilirubin Urine Negative (Negative); Blood Urine Trace-intact (Negative); Color Urine Yellow (Yellow); Glucose Urine UA 2+ (Negative); Ketones Urine Negative (Negative); Leukocyte Esterase Ur 1+ LEU/UL (Negative); Nitrate Urine Negative (Negative); Protein Urine Trace (Negative); RBC Urine 0-2 /hpf (0-2); Specific Grav Ur 1.025 (1.010-1.020); Squamous Epithelial Cell Urine Moderate /hpf (Few); pH Urine 5.5 (5.0-8.0)
[2024-03-28 19:18] LABS: Bacteria Urine 3+ /hpf
[2024-03-28 19:24] LABS: Basophils Absolute Auto 0.04 K/mm3 (0.00-0.10); Basophils Percent Auto 0.9 % (0.0-1.0); Eosinophils Absolute Auto 0.11 K/mm3 (0.02-0.50); Eosinophils Percent Auto 2.4 % (1.0-6.0); Hematocrit 32.8 % (35.0-42.0); Hemoglobin 10.4 g/dL (11.7-13.8); Immature Granulocyte Absolute 0.02 K/mm3 (0.00-0.00); Immature Granulocyte Percent A 0.4 % (0.0-0.0); Lymphocytes Absolute Auto 0.94 K/mm3 (1.10-4.50); Lymphocytes Percent Auto 20.5 % (18.0-42.0); Mean Corpuscular HGB Conc 31.7 g/dL (32-36); Mean Corpuscular Hemoglobin 32.5 pg (27.0-31.0); Mean Corpuscular Volume 102.5 fL (78.0-102.0); Mean Platelet Volume 9.9 fl (9.2-11.8); Monocytes Absolute Auto 0.52 K/mm3 (0.10-0.90); Monocytes Percent Auto 11.4 % (2.0-11.0); Neutrophils Absolute Auto 2.95 K/mm3 (1.70-7.20); Neutrophils Percent Auto 64.4 % (50.0-70.0); Platelet Count Result 229 K/mm3 (150-420); Red Cell Distribution Width 13.5 % (11.6-14.4); White Blood Count 4.6 K/mm3 (4.8-10.8)
[2024-03-28] MEDS: LACTATED RINGERS 500 ML 999 ML IV CONT (19:25)
[2024-03-28] MEDS: KETOROLAC 30 MG/ML VIAL (*BKC) IV PUSH (19:26)
[2024-03-28 19:47] LABS: Alanine Aminotransferase 17 U/L (14-59); Albumin Level 3.2 g/dL (3.4-5.0); Alkaline Phosphatase 107 U/L (46-116); Anion Gap 7 mmol/L (4-12); Aspartate Amino Transferase 22 U/L (15-37); Bilirubin,Total 1.1 mg/dL (0.00-1.00); Blood Urea Nitrogen 33 mg/dL (7-18); Calcium 8.9 mg/dL (8.5-10.1); Carbon Dioxide 28 mmol/L (21-32); Chloride 102 mmol/L (98-108); Estimated Glomerular Filt Rate 38; Glucose 116 mg/dL (70-99); Lipase 21 U/L (16-77); Osmolality Calculated 292 mOsm/kg (285-295); Potassium 4.6 mmol/L (3.5-5.1); Sodium 137 mmol/L (136-145); Total Protein 6.5 g/dL (6.4-8.2)
[2024-03-28 20:00] LABS: Lactic Acid Reflex 0.9 mmol/L (0.4-2.0)
--- NOTE | 2024-03-28 20:20 | PC.NURSE ---
DR NDIAYE AT PATIENT BEDSIDE AT THIS TIME REVIEWING PLAN OF CARE AND RESULTS WITH PATIENT AND VISITORS.
[2024-03-28] MEDS: SODIUM CHLORIDE 0.9% IV 1,000 ML 999 ML IV CONT (20:24)
[2024-03-28] MEDS: HYDROmorphone HCL INJ (*CRX) 2 MG/ML VIAL 0.5 MG IV PUSH (21:20)
[2024-03-28] MEDS: ONDANSETRON INJ 4 MG/2 ML VIAL IV PUSH (21:21)
[2024-03-28 21:56] VITALS: BP 116/68; PULSE 72; RESP 18; TEMP 36.6; O2SAT 97
--- NOTE | 2024-03-31 12:13 | PC.NURSE ---
urine culture reviewed, no growth noted.
== END 2024-03-28 21:56 | disposition home or self-care (01) ==
PROVIDERS: Emergency Provider Internal Medicine Critical Care Medicine; PCP Internal Medicine Critical Care Medicine
DX: M54.16 Radiculopathy, lumbar region (principal); R10.32 Left lower quadrant pain; D53.9 Nutritional anemia, unspecified; N18.32 Chronic kidney disease, stage 3b; I25.10 Atherosclerotic heart disease of native coronary artery without angina pectoris; I42.9 Cardiomyopathy, unspecified; I25.2 Old myocardial infarction; I48.91 Unspecified atrial fibrillation; Z95.5 Presence of coronary angioplasty implant and graft; Z79.82 Long term (current) use of aspirin; Z79.84 Long term (current) use of oral hypoglycemic drugs; Z79.891 Long term (current) use of opiate analgesic; Z79.01 Long term (current) use of anticoagulants
CPT/HCPCS: 36415; 74176; 80053; 81001; 83605; 83690; 85025; 87086; 96361; 96365; 96375; 99284; J0696; J1170; J1885; J2405; J7030; J7120

== ENCOUNTER 2024-05-07 12:46 | Emergency (ER) | payer MEDICARE, SELFPAY ==
--- NOTE | ~2024-05-07 | CT_ITS ---
EXAMINATION: CT brain wo con DATE: 05/07/2024 14:13 INDICATION: Altered mental status post fall TECHNIQUE: Computed tomography (CT) of the head was performed without intravenous contrast. Sagittal and coronal reconstructions were performed. The mA was adjusted according to patient size. Iterative reconstruction technique was employed. The dose-length product was 605.33 mGy-cm. COMPARISON: head CT dated 05/14/2023 FINDINGS: No fracture. No acute intracranial hemorrhage, acute infarction or abnormal extra axial fluid collect ion. 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 There is mild to mo derate scattered white matter hypoattenuation consistent with chronic small vessel ischemic disease. Ventricles are normal and symmetric. No mass/mass effect. Changes of bilateral intraocular lens repla cement. The orbits, paranasal sinuses and mastoid air cells are normal. IMPRESSION: 1. No fracture or acute intracranial process. 2. 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 Reviewed, dictated and finalized at location B. IMPRESSION: 1. No fracture or acute intracranial process. 2. 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
--- NOTE | ~2024-05-07 | XR_ITS ---
EXAMINATION: XR pelvis 1-2V DATE: 05/07/2024 14:13 INDICATION: Fall TECHNIQUE: Supine anteroposterior view of the pelvis was obtained. COMPARISON: CT dated 5 02/27/2024 FINDINGS: Partial visualized right total hip arthroplasty which is in near-anatomic alignment. No evident fract ure. Assessment of the sacrum and coccyx are limited by osteopenia and superimposed bowel gas. Mild o steoarthritis at the left hip and left sacral iliac joints. Moderate osteoarthritis at the right sacr oiliac joint. Severe mid lumbar spondylosis. IMPRESSION: 1. Right total hip arthroplasty. No evident acute osseous abnormality. Reviewed, dictated and finalized at location B.
--- NOTE | ~2024-05-07 | XR_ITS ---
EXAMINATION: XR chest 1V portable DATE: 05/07/2024 14:13 INDICATION: Fall TECHNIQUE: frontal view of the chest was obtained. COMPARISON: Chest radiograph dated 05/14/2023 FINDINGS: Right internal jugular central venous port catheter with distal tip in the mid superior vena cava. No focal airspace opacities, pulmonary edema, pleural effusion or pneumothorax. Heart size is normal pr ominent left paracardial fat pad. Coronary artery stenting. Tortuous and atherosclerotic thoracic aor ta. Mild lower thoracic dextrocurvature with moderate spondylosis. Severe bilateral glenohumeral oste oarthritis. IMPRESSION: 1. No acute cardiopulmonary disease. Reviewed, dictated and finalized at location B.
--- NOTE | ~2024-05-07 | CT_ITS ---
EXAMINATION: CT cervical spine wo con DATE: 05/07/2024 14:13 INDICATION: Neck injury. TECHNIQUE: Computed tomography (CT) of the cervical spine was performed without intravenous contrast. Automated exposure control and iterative reconstruction technique were employed. The dose-length pro duct was 605.33 mGy-cm. COMPARISON: None FINDINGS: There is a 2.9 cm nodule in left thyroid lobe. There is a 2.1 cm part-solid nodule with 7 m m solid component in left lung upper lobe. There is a right internal jugular port. There is 2 mm ante rolisthesis of C3 on C4 and C7 on T1. Vertebral body heights are normal. There is a fracture of C7 in ferior endplate posteriorly. There is mildly decreased disc height at C3-C4 and severely decreased di sc height from C4-C5 through C6-C7. The following disc levels are specifically discussed: C2-C3: There is no uncovertebral joint osteoarthritis. There is severe bilateral facet joint osteoart hritis. There is mild bilateral neural foraminal stenosis. There is no central canal stenosis. C3-C4: There is mild bilateral uncovertebral joint osteoarthritis. There is severe bilateral facet noelle int osteoarthritis. There is moderate right and mild left neural foraminal stenosis. There is mild ce ntral canal stenosis. C4-C5: There is severe bilateral uncovertebral joint osteoarthritis. There is severe bilateral facet joint osteoarthritis. There is mild right and moderate left neural foraminal stenosis. There is mild central canal stenosis. C5-C6: There is severe bilateral uncovertebral joint osteoarthritis. There is moderate bilateral face t joint osteoarthritis. There is mild right and moderate left neural foraminal stenosis. There is mil d central canal stenosis. C6-C7: There is severe bilateral uncovertebral joint osteoarthritis. There is severe bilateral facet joint osteoarthritis. There is mild bilateral neural foraminal stenosis. There is mild central canal stenosis. C7-T1: There is no uncovertebral joint osteoarthritis. There is severe bilateral facet joint osteoart hritis. There is mild bilateral neural foraminal stenosis. There is no central canal stenosis. IMPRESSION: 1. Fracture of C7 inferior endplate posteriorly. 2. Severe cervical spondylosis. Reviewed, dictated and finalized at location A.
[2024-05-07 12:52] VITALS: BP 133/70; PULSE 89; RESP 21; TEMP 37.2; O2SAT 99
--- NOTE | 2024-05-07 12:52 | ED.FALL ---
HPI - Fall General Chief Complaint: Fall Stated Complaint: arm injury Time Seen by Provider: 05/07/24 12:51 Source: patient and family Mode of arrival: ambulatory Limitations: no limitations History of Present Illness HPI Narrative: E 9-year-old female with a history coronary artery disease / non STEMI status post stents, AFib , arthritis, recently diagnosed metastatic left breast cancer a history of recurrent falls and presents to the ER with -- multiple falls since yesterday. -- Multiple skin tears with profuse bleeding -- multiple bruises -- patient is confused. The patient takes hydrocodone round the clock. no head injury or loss of consciousness. No neck or back pain. decreased oral intake complaint: fall Onset (ago): day(s) ( One day) Fall from: standing Fall witnessed: yes, by family Place fall occurred: home Loss of consciousness: none Prolonged down time: no Symptoms prior to fall: other ( unsure) Location of injury: other ( upper and lower extremities) Location of injury - extremities: Left: forearm and lower leg Quality: aching Related Data Home Medications Medication Instructions Recorded Confirmed aspirin 81 mg chewable tablet 81 mg PO DAILY 05/27/23 04/11/24 empagliflozin 10 mg tablet 10 mg PO DAILY 12/26/23 04/11/24 (Jardiance) metoprolol succinate 25 mg 12.5 mg PO DAILY 12/26/23 04/11/24 tablet,extended release 24 hr sacubitril 24 mg-valsartan 26 mg 1 tablet PO BID 12/26/23 04/11/24 tablet (Entresto) spironolactone 25 mg tablet 12.5 mg PO DAILY 12/26/23 04/11/24 Allergies Allergy/AdvReac Type Severity Reaction Status Date / Time No Known Allergies Allergy Verified 05/07/24 09:15 Review of Systems Review of Systems: All systems reviewed & are unremarkable except as noted in HPI and below Constitutional: Constitutional: Reports as per HPI and Reports no additional constitutional complaints Eyes: Eyes: Reports as per HPI and Reports no additional eye complaints ENT: Reports system reviewed and no additional complaints, except as documented and Reports as per HPI Cardiovascular: Cardiovascular: Reports as per HPI and Reports no additional cardiovascular complaints Respiratory: Respiratory: Reports as per HPI and Reports no additional respiratory complaints Gastrointestinal: Gastrointestinal: Reports as per HPI and Reports no additional gastrointestinal complaints Genitourinary: Genitourinary: Reports no additional female genitourinary complaints Musculoskeletal: Musculoskeletal: Reports myalgias Integumentary/Breasts: Skin/Breast: Reports system reviewed and no additional complaints, except as docu and Reports as per HPI Comments: multiple skin tears multiple bruises both upper and lower extremities Neurologic: Reports system reviewed and no additional complaints, except as documented and Reports as per HPI Psychiatric: Psychiatric: Reports no additional psychiatric complaints and Reports as per HPI Endocrine: Endocrine: Reports no additional endocrine complaints and Reports as per HPI Hematologic/Lymphatic: Hematologic/Lymphatic: Reports no additional hematologic/lymphatic complaints and Reports as per HPI Allergic/Immunologic: Allergic/Immunologic: Reports no additional allergic/immunologic complaints and Reports as per HPI PMFSH Past Medical History Medical History Osteoarthritis Surgical History Surgical History History of appendectomy Age 17 History of hysterectomy Age 43 History of right hip replacement 2019 Family History Family History Mother Family history of arthritis Father No problems noted. Social History Social History Social History: Patient lives with her Julio and has 2 sons.
[2024-05-07 12:55] VITALS: RESP 18; O2SAT 96
--- NOTE | 2024-05-07 13:06 | ECG_ITS ---
Test Date: 2024-05-07 13:01:07 Measurements Intervals [place] Rate: 100 P: 61 NE: 165 QRS: -23 QRSD: 113 T: 96 QT: 358 QTc: 462 Interpretive Statements SINUS TACHYCARDIA WITH FREQUENT SUPRAVENTRICULAR PREMATURE COMPLEXES BORDERLINE LEFT AXIS DEVIATION [QRS AXIS < -20] MODERATE INTRAVENTRICULAR CONDUCTION DELAY [110+ ms QRS DURATION] MODERATE T-WAVE ABNORMALITY, CONSIDER LATERAL ISCHEMIA [-0.1+ mV T-WAVE IN I/aVL/V5/V6] No previous ECG available for comparison Electronically Signed On 05-08-2024 13:20:37 CDT by Triston Echevarria M.D.
[2024-05-07 13:40] VITALS: BP 107/60; PULSE 85; RESP 18; O2SAT 96
[2024-05-07 13:48] LABS: Basophils Absolute Auto 0.02 K/mm3 (0.00-0.10); Basophils Percent Auto 0.3 % (0.0-1.0); Eosinophils Absolute Auto 0.05 K/mm3 (0.02-0.50); Eosinophils Percent Auto 0.7 % (1.0-6.0); Hematocrit 31.7 % (35.0-42.0); Hemoglobin 10.5 g/dL (11.7-13.8); Immature Granulocyte Absolute 0.04 K/mm3 (0.00-0.00); Immature Granulocyte Percent A 0.5 % (0.0-0.0); Lymphocytes Absolute Auto 0.27 K/mm3 (1.10-4.50); Lymphocytes Percent Auto 3.5 % (18.0-42.0); Mean Corpuscular HGB Conc 33.1 g/dL (32-36); Mean Corpuscular Hemoglobin 33.1 pg (27.0-31.0); Mean Platelet Volume 9.6 fl (9.2-11.8); Monocytes Absolute Auto 0.88 K/mm3 (0.10-0.90); Monocytes Percent Auto 11.4 % (2.0-11.0); Neutrophils Absolute Auto 6.43 K/mm3 (1.70-7.20); Neutrophils Percent Auto 83.6 % (50.0-70.0); Platelet Count Result 212 K/mm3 (150-420); Red Blood Count 3.17 M/mm3 (4.20-5.40); Red Cell Distribution Width 13.2 % (11.6-14.4); White Blood Count 7.7 K/mm3 (4.8-10.8)
[2024-05-07 14:05] LABS: Lactic Acid Reflex 1.3 mmol/L (0.4-2.0)
[2024-05-07 14:12] LABS: Alanine Aminotransferase 12 U/L (14-59); Albumin Level 2.9 g/dL (3.4-5.0); Alkaline Phosphatase 111 U/L (46-116); Anion Gap 11 mmol/L (4-12); Aspartate Amino Transferase 30 U/L (15-37); Bilirubin,Total 1.2 mg/dL (0.00-1.00); Blood Urea Nitrogen 41 mg/dL (7-18); Calcium 7.9 mg/dL (8.5-10.1); Carbon Dioxide 22 mmol/L (21-32); Chloride 102 mmol/L (98-108); Estimated CRCL calculation 17 ml/min; Estimated Glomerular Filt Rate 32; Glucose 152 mg/dL (70-99); NT Pro B Type Natriuretic Pept 791 pg/mL (0-450); Osmolality Calculated 293 mOsm/kg (285-295); Potassium 3.7 mmol/L (3.5-5.1); Sodium 135 mmol/L (136-145); Total Protein 6.9 g/dL (6.4-8.2); Troponin I 18.2 ng/L (0.00-60.4)
[2024-05-07 14:13] LABS: Lipase 15 U/L (16-77)
[2024-05-07 14:36] VITALS: BP 110/70; PULSE 71; RESP 16; O2SAT 94
[2024-05-07] MEDS: SILVER NITRATE (*SP) STICK 2 EACH TOPICAL (15:07)
[2024-05-07 15:22] VITALS: BP 109/62; PULSE 82; RESP 16; O2SAT 98
== END 2024-05-07 15:50 | disposition home or self-care (01) ==
PROVIDERS: Emergency Provider Internal Medicine Critical Care Medicine; PCP Family Medicine
DX: C50.412 Malignant neoplasm of upper-outer quadrant of left female breast (principal); R41.0 Disorientation, unspecified; S41.112A Laceration without foreign body of left upper arm, initial encounter; S41.111A Laceration without foreign body of right upper arm, initial encounter; S81.812A Laceration without foreign body, left lower leg, initial encounter; S81.811A Laceration without foreign body, right lower leg, initial encounter; I25.10 Atherosclerotic heart disease of native coronary artery without angina pectoris; E78.5 Hyperlipidemia, unspecified; I10 Essential (primary) hypertension; I25.2 Old myocardial infarction; I48.91 Unspecified atrial fibrillation; W19.XXXA Unspecified fall, initial encounter
CPT/HCPCS: 12002; 36415; 70450; 71045; 72125; 72170; 80053; 83605; 83690; 83880; 84484; 85025; 93005; 99284; L0120

== ENCOUNTER 2024-05-11 11:18 | Outpatient (CLI) | payer MEDICARE, SELFPAY ==
[2024-05-11 11:35] LABS: Appearance Urine Turbid (Clear); Bilirubin Urine Negative (Negative); Blood Urine 1+ (Negative); Color Urine Yellow (Yellow); Glucose Urine UA 2+ (Negative); Ketones Urine Negative (Negative); Leukocyte Esterase Ur Trace (Negative); Nitrate Urine Negative (Negative); Protein Urine 2+ (Negative); Urobilinogen Urine 0.2 mg/dL (0.2-1.0); pH Urine 5.5 (5.0-8.0)
[2024-05-11 11:54] LABS: Add Urine Microscopic? YES; RBC Urine None seen /hpf (0-2); Squamous Epithelial Cell Urine Many /hpf (Few)
[2024-05-11 11:55] LABS: Amorphous Sediment Urine Few; Bacteria Urine 4+ /hpf; Mucus Urine Moderate /lpf
== END 2024-05-11 11:19 | disposition home or self-care (01) ==
LOC: CHSLAB 11:19
PROVIDERS: PCP Family Medicine; Visit Provider Family Medicine
DX: R53.83 Other fatigue (principal)
CPT/HCPCS: 81001